=== PATIENT | male | born 1955 | race Caucasian/White ===

== ENCOUNTER 2019-11-08 07:52 | Outpatient (CLI) | payer BC, SELFPAY ==
--- NOTE | ~2019-11-08 | US_ITS ---
US right upper quadrant INDICATION: Chronic hepatitis C PROCEDURE: Realtime right upper abdominal ultrasound. COMPARISON: No prior studies for comparison. FINDINGS: The pancreas is normal without focal mass or pancreatic ductal dilation. Liver echotexture is normal without focal mass or intrahepatic biliary dilatation. There is normal directional flow i n the portal vein. The gallbladder is normal without stones, gallbladder wall thickening or pericholecystic fluid. Comm on bile duct measures 3.4 mm. No sonographic Sunshine's sign. IMPRESSION: 1: Normal limited abdominal ultrasound. Reviewed, dictated and finalized at location A.
== END 2019-11-08 07:53 | disposition home or self-care (01) ==
PROVIDERS: PCP Nurse Practitioner Family
DX: B18.2 Chronic viral hepatitis C (principal)
CPT/HCPCS: 76705

== ENCOUNTER 2020-06-21 17:59 | Emergency (ER) | payer BC, SELFPAY ==
--- NOTE | ~2020-06-21 | XR_ITS ---
EXAMINATION: XR finger 4th LT min 2V DATE: 06/21/2020 18:25 INDICATION: Left hand fourth digit injury. TECHNIQUE: 3 views of left hand fourth digit were obtained. COMPARISON: None. FINDINGS: There is a nondisplaced stellate fracture of tuft of fourth distal phalanx. 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 There is a 5 mm radiopaque foreign body bejarano r to fifth proximal phalanx. IMPRESSION: 1. Nondisplaced stellate fracture of tuft of fourth distal phalanx. 2. 5 mm radiopaque foreign body palmar to fifth proximal phalanx. Reviewed, dictated and finalized at location A.
[2020-06-21 18:02] VITALS: BP 194/105; PULSE 95; RESP 18; TEMP 36.4; O2SAT 97
[2020-06-21] MEDS: IBUPROFEN 600 MG TABLET PO (18:22)
--- NOTE | 2020-06-21 18:58 | ED.GENADULT ---
HPI - General Adult General Chief complaint: Extremity Injury, Upper Stated complaint: left hand injury Time Seen by Provider: 06/21/20 18:11 Source: patient and RN notes reviewed Mode of arrival: ambulatory Limitations: no limitations History of Present Illness HPI narrative: Patient is a 64-year-old male who presents with crush injury to the left ring finger patient had his finger get caught between his trailer and an object injuring the distal phalanx patient presents after the injury patient has not taken anything for his symptoms patient presents per private vehicle ice is applied patient has not had anything for pain denies other injuries or complaints Related Data Home Medications Medication Instructions Recorded Confirmed amlodipine 06/21/20 06/21/20 meloxicam 06/21/20 sofosbuvir-velpatasvir [Epclusa] tablet 06/21/20 Allergies Allergy/AdvReac Type Severity Reaction Status Date / Time No Known Allergies Allergy Verified 06/21/20 18:05 Review of Systems Review of Systems: All systems reviewed & are unremarkable except as noted in HPI and below PMFSH Social History Social History Gender identity (if verbalized by the patient): Male Exam Narrative: Exam Narrative: GENERAL: Well-appearing, well-nourished, and in no acute distress. HEAD: Normocephalic, atraumatic. EYES: PERRLA and EOMI. ENT: Nares clear, no rhinorrhea or epistaxis. Mucous membranes moist. EXTREMITIES: Patient with swelling and bruising and tenderness of the distal phalanx of the left ring finger SKIN: Warm, dry, no rash. NEURO: No focal deficits. Alert and oriented x3. Neurovascularly intact. Capillary refill less than 2-second PSYCH: Normal mood and affect. Course Course Emergency Course: Patient evaluated in the emergency department found to have fracture of the distal phalanx left ring finger placed in metal finger splint will be referred to hand surgeon for further evaluation Vital Signs Vital signs: Vital Signs Temperature 97.6 F 06/21/20 18:02 Pulse Rate 95 06/21/20 18:02 Respiratory Rate 18 06/21/20 18:02 Blood Pressure 194/105 H 06/21/20 18:02 Pulse Oximetry 97 06/21/20 18:02 Temperature 97.6 F 06/21/20 18:02 Pulse Rate 95 05/06/21 18:02 Respiratory Rate 18 06/21/20 18:02 Blood Pressure 194/105 H 06/21/20 18:02 Pulse Oximetry 97 06/21/20 18:02 Procedures Other Procedure Procedure 1: Other Procedure: Patient placed in metal finger splint Medical Decision Making MDM Narrative Medical decision making narrative: Patients injury or pain is consistent with musculoskeletal etiology. No signs of neurological or vascular compromise on exam. Compartments and tisues are soft without signs of compartment syndrome. Pain is felt appropriate for further evaluation on an outpatient basis. Vital Signs Vital Signs: Vital Signs Temperature 97.6 F 06/21/20 18:02 Pulse Rate 95 06/21/20 18:02 Respiratory Rate 18 06/21/20 18:02 Blood Pressure 194/105 H 06/21/20 18:02 Pulse Oximetry 97 06/21/20 18:02 Temperature 97.6 F 06/21/20 18:02 Pulse Rate 95 06/21/20 18:02 Respiratory Rate 18 06/21/20 18:02 Blood Pressure 194/105 H 06/21/20 18:02 Pulse Oximetry 97 06/21/20 18:02 Imaging Data Radiologist's impression: ITS Impressions Finger X-Ray 06/21/20 18:26 IMPRESSION: 1. Nondisplaced stellate fracture of tuft of fourth distal phalanx. 2. 5 mm radiopaque foreign body palmar to fifth proximal phalanx. Discharge Plan Discharge Clinical Impression: Finger fracture Patient Disposition: Home, Self-Care Condition: Stable Instructions: Antibiotic Form, Finger Fracture (ED) Additional Instructions: Follow-up with hand surgeon in the next day to set up for reevaluation Wear metal finger splint with rest ice and elevation Return if symptoms worsen or concerns Follow patient educat
--- NOTE | 2020-06-30 06:42 | PC.NURSE ---
Late Entry Metal finger splint applied to Left ring finger on 06/21/2020 at the time of discharge.
== END 2020-06-21 19:22 | disposition home or self-care (01) ==
PROVIDERS: Emergency Provider Family Medicine; PCP Nurse Practitioner Family
DX: S62.665A Nondisplaced fracture of distal phalanx of left ring finger, initial encounter for closed fracture (principal); W23.0XXA Caught, crushed, jammed, or pinched between moving objects, initial encounter
CPT/HCPCS: 29130; 73140; 99284; A9270

== ENCOUNTER 2024-07-03 13:27 | Inpatient (IN) | payer MEDICARE, BC, SELFPAY ==
--- NOTE | ~2024-07-03 | CT_ITS ---
EXAMINATION: CTA chest PE protocol DATE: 07/03/2024 14:42 CDT INDICATION: Shortness of breath with fever and leukocytosis TECHNIQUE: Computed tomographic angiography (CTA) of the chest was performed with 100 mL Omnipaque-35 0 intravenous contrast. The dose-length product was 640.45 mGy-cm. Maximum intensity projection 3D-re constructions of the aorta and other arteries were constructed by the technologist on a separate work station. COMPARISON: None. FINDINGS/OBSERVATIONS: PULMONARY ARTERIES: No filling defect is identified within the main or proximal pulmonary artery. The main pulmonary artery is not enlarged. THORACIC AORTA: No aneurysmal dilatation or dissection is present. The great vessels are intact LUNGS: Calcified granuloma within the right upper lobe. Nodular density without air bronchograms measuring 4.9 x 3.4 x 3.6 cm is present within the left lowe r lobe. Surrounding interstitial thickening is noted. The remainder of the lungs are clear. MEDIASTINUM: No morphologically suspicious or pathologically enlarged lymph nodes are identified with in the mediastinum or bilateral axilla. BONES OF THE CHEST: No acute fracture. No significant degenerative disease. No lytic or blastic lesions. HEART: The heart is of normal size, without pericardial effusion. IMPRESSION: No central pulmonary embolus. No thoracic aortic dissection. Findings within the left lower lobe for which an infiltrate is suspected. Follow-up to resolution is recommended, as a malignancy has a similar appearance. Reviewed, dictated and finalized at location A. IMPRESSION: No central pulmonary embolus. No thoracic aortic dissection. Findings within the left lower lobe for which an infiltrate is suspected. Follow-up to resolution is recommended, as a malignancy has a similar appearanc e.
[2024-07-03 13:29] VITALS: BP 139/93; PULSE 116; RESP 20; TEMP 39.2; O2SAT 100
--- OUTSIDE RECORDS SUMMARY | 2024-07-03 13:30 | XMS_ITS | Clinical Summary ---
Author Organization [facility] Address [address] [place] [address] Care Team Providers [employer] Supervisor Name Role Phone Unavailable Primary Care Provider Unavailabl e Immunizations Immunization Administration Dates Next Due Covid-19, Mrna, Lnp-s, Pf, 30 Mcg/0.3 Ml Dose (P kevinzer) 12/25/2020,11/27/2020 Social History Tobacco Use Types Packs/Day Years Used Date Smoking Tobacco: Never Assessed Sex and Gender Information Value Date Recorded Sex Assigned at Not on file Legal Sex Male 6:03 PM CDT Gender Identity Not on file Sexual Orientation Not on file Plan of Treatment Health Maintenance Due Date Last Done Comments Hepatitis C Virus (HCV) Screening 1955 Colonoscopy 2001 Colorectal Cancer Screening 2001 Cologuard 2006 Immunochemical Fecal Occult Blood 2006 Pneumococcal Immunization (5 0+ years) (1 of 1 - PCV) 2006 Zoster Immunization (1 of 2) 2006 Influenza Immunization (#1) 2023 SARS-COV-2 Immunization ( season) 2023 12/25/2020, 11/27/2020 Respiratory Syncytial Virus (RSV) Immunization (Adult) (1 - 1-dose 75+ series) 12/13/2031 DTaP/Tdap/Td Immunization Discontinued 08/22/2019 TdaP Immunization Completed 08/22/2019 Hepatitis B Immunization Aged Out No longer eligible based on patient's age to complete this topic Meningococcal Immunization (ACWY) Aged Out No longer eligible based on patient's age to complete this topic Rotavirus Immunization Aged Out No lo nger eligible based on patient's age to complete this topic
--- OUTSIDE RECORDS SUMMARY | 2024-07-03 13:30 | XMS_ITS | Clinical Summary ---
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 90 tablet 3 4 Active budesonide-glycopyr rolate-formoterol (BREZTRI) 160-9-4.8 MCG/ACT inhalerIndications: SOB (shortness of breath) Inhale 2 puffs into the lungs 2 (two) times daily. 32.1 g 3 5 Active Albuterol-Budesonid e (AIRSUPRA) 90-80 MCG/ACT AerosolIndications: SOB (shortness of breath) Inhale 2 puffs into the lungs every 6 (six) hours as needed (sob). 32.1 g 3 5 Active tamsulosin (FLOMAX) 0.4 MG CapIndications:Chepe gn prostatic hyperplasia with urinary hesitancy Take 1 capsule (0.4 mg total) by mouth daily. 90 capsule 1 5 Active meloxicam (MOBIC) 15 MG tabletIndications:P rimary osteoarthritis involving multiple joints Take 1 tablet (15 mg total) by mouth daily. 90 tablet 1 5 Active losartan (COZAAR) 100 MG tabletIndications:P rimary hypertension Take 1 tablet (100 mg total) by mouth daily. 90 tablet 3 5 Active buPROPion XL (WELLBUTRIN XL) 300 MG 24 hr tabletIndications:M ild episode of recurrent major depressive disorder Take 1 tablet (300 mg total) by mouth daily. 90 tablet 3 5 Active amLODIPine (NORVASC) 10 MG tabletIndications:P rimary hypertension Take 1 tablet (10 mg total) by mouth daily. 90 tablet 3 5 Active Active Problems Problem Noted Date Diagnosed Date Primary osteoarthritis involving multiple joints 04/18/2024 Nicotine dependence, cigarettes, in remission Family history of early CAD 02/13/2022 Anxiety 02/13/2022 Non-compliance with treatment 10/26/2020 Anger 03/27/2020 Benign prostatic hyperplasia with urinary hesita ncy 03/27/2020 History of intravenous drug abuse 11/24/2019 Mixed hyperlipidemia 08/24/2019 Neuropathy 08/24/2019 History of positive hepatitis C 03/02/2019 Class 1 obesity due to exces s calories with serious comorbidity and body mass index (BMI) of 30.0 to 30.9 in adult 03/02/2019 Influenza vaccination declined by patient 2019 Tetanus, diphtheria, and james llular pertussis (Tdap) vaccination declined 03/02/2019 Encounter for smoking cessation counseling 02/22 SOB (shortness of breath) 02/22/2019 Chronic hepatitis C (CMS/HCC [facility]/HCC) 02/04/2019 Abdominal pain 12/21/2016 Shoulder pain, right 12/11/2016 Depression 06/12/2016 Erectile dysfunction 06/12/2016 Elevated liver enzymes 03/26/2016 Low vitamin D level 03/26/2016 Primary hypertension 03/20/2016 Resolved Problems Problem Noted Date Diagnosed Date Resolved Date Resistant hypertension 02/13/202204/18 Pain and swelling of left lower leg 10/26/2020 04/18/2024 Screening for prostate cancer 08/24/2019 10/28/2019 Encounter to establish care 03/02/2019 10/28/2019 Smoker 02/22/2019 08/24/2019 Abdominal bloating 12/11/2016 5 Conjunctivitis 12/11/2016 04/18/2024 Immunization due 03/20/2016 10/28/2019 Encounters Date Type Department Care Team Description 06/14/[address] [address] Vicki Norman FNP Results 06/08/[address] [address] Vicki Norman FNP Lab Results 06/02/2024 Results Follow-Up [address] [address] Vicki Norman FNP HEMOGLOBIN, GLYCOSYLATED, MAGNESIUM, FOLIC ACID SERUM, Additional followed-up results: 9 06/01/2024 10:20 AM CDT Laboratory Only [address] [address] Vicki Norman FNP 06/01/2024 Scan [employer] INFO SRVCS Scanned, [facility] Ultrasound (SCAN) 06/01/2024 Travel 04/18/2024 2:[address] PRODUCTION GENERAL MANAGER Office Visit [address] [address] Vicki Norman FNP Annual 04/18/2024 Travel from Last 3 Months Immunizations Immunization Administration Dates Next Due Tdap (Adacel) 08/22/2019 Family History Medical History Relation Comments Hypertension Maternal Grandfather Hypertension Maternal Grandmother Heart Disease Mother Hypertension Mother Relation Status Comments Father Maternal Grandfather Maternal Grandmother Mother Alive Social History Tobacco Use Types Packs/Day Years Used Date Smoking Tobacco: Former Cigarettes 0.5 45 1 - 12/01/2018 Smokeless Tobacco: Never Tobacco Cessation:Counseling Given: Yes Alcohol Use Standard Drinks/Week Comments Not Currently 1.7 (1 standard drin k = 0.6 oz pure alcohol) socially; 2-4 beers a month AUDIT-C Answer Date Recorded Frequency of Alcohol Consumption Never 02/22/2019 Average Number of Drinks Not on file 020 Frequency of Binge Drinking Not on file 08/2019 PHQ-2 Answer Date Recorded Patient Health Questionnaire-2 Score 1 04/18/2024 Sex and Gender Information Value Date Recorded Sex Assigned at Male 04/18/2024 2:[address] PRODUCTION GENERAL MANAGER Legal Sex Male 7:48 PM CDT Gender Identity Male 04/18/2024 2:[address] PRODUCTION GENERAL MANAGER Sexual Orientation Not on file Last Filed Vital Signs Vital Sign Reading Time Taken Comments Blood Pressure 128/76 04/18/2024 3:[address] PRODUCTION GENERAL MANAGER man ual Pulse 101 04/18/2024 2:[address] PRODUCTION GENERAL MANAGER Temperature 37 C (98.6 F) 04/18/2024 2:[address] PRODUCTION GENERAL MANAGER Respiratory Rate 16 04/18/2024 2:[address] PRODUCTION GENERAL MANAGER Oxygen Saturation 98% 04/18/2024 2:[address] PRODUCTION GENERAL MANAGER Inhaled Oxygen Concentration - - Weight 99.1 kg (218 lb 8 oz) 04/18/2024 2:[address] PRODUCTION GENERAL MANAGER Height 180.3 cm (5' 11 ) 04/18/2024 2:[address] PRODUCTION GENERAL MANAGER Body Mass Index 30.47 04/18/2024 2:[address] PRODUCTION GENERAL MANAGER Plan of Treatment Health Maintenance Due Date Last Done Comments Lung Cancer Screening 03/15/2020 03/15/2019 Colorectal Cancer Screening FIT-DNA (3 Years) 02/27/2025 02/27/2022, 02/27/2022, 12/15/2018 DTaP, Tdap and Td Vaccines (2 - Td or Tdap) 08/21/2029 08/22/2019 COVID-19 Vaccine (3 - season) 2074 12/25/2020, 11/27/2020 Postponed from 10/18/2023 (Patient Refused) Pneumococcal Vaccine: 50+ Years (1 of 2 - PCV) 04/18/2074 Postponed from 12/13/1975 (Patient Refused) RSV Immunization or 60+ Years (1 - Risk 60-74 years 1-dose series) 04/18/2074 Postponed fro m 2016 (Patient Refused) Zoster Vaccines (1 of 2) 04/18/2074 Pos tponed from 2006 (Patient Refused) Hepatitis C Completed 03/07/2022, 10/17, 03/27/2020, Additional history exists PHQ-2 (Physician [place]) Completed 04/18/2024 AAA SCREENING Completed 06/01/2024 Meningococcal B Vaccine Aged Out No l onger eligible based on patient's age to complete this topic Meningococcal Vaccine Aged Out No uli mario eligible based on patient's age to complete this topic RSV Immunizations Under 20 Months Aged Out No longer eligible based on patient's age to complete this topic Procedures Procedure Name Priority Date/Time Associated Diagnosis Comments COLLECTION VENOUS BLOOD VENIPUNCTURE Routine 06/01/2024 11:02 AM CDT Class 1 obesity due to excess calories with serious comorbidity and body mass index (BMI) of 30.0 to 30.9 in adult Mixed hyperlipidemia Primary hypertension Mild episode of recurrent major depressive disorder Low vitamin D level Encounter for prostate cancer screening CBC W/DIFF AUTOMATED Routine 06/01/2024 11:02 AM CDT Mixed hyperlipidemia Primary hypertension LIPID PANEL Routine 06/01/2024 11:02 AM CDT Mixed hyperlipidemia Primary hypertension TSH W/REFLEX Routine 06/01/2024 11:02 AM CDT Mixed hyperlipidemia Primary hypertension PROSTATE SPECIFIC ANTIGEN,SCREENING Routine 06/01/2024 11:02 AM CDT Encounter for prostate cancer screening VITAMIN D, 25 OH Routine 06/01/2024 11:0 2 AM CDT Low vitamin D level URIC ACID BLOOD Routine 06/01/2024 11:02 AM CDT Mixed hyperlipidemia Primary hypertension COMPREHENSIVE METABOLIC PANEL Routine 06/01/2024 11:02 AM CDT Mixed hyperlipidemia Primary hypertension URINALYSIS, AUTO, COMPLETE Routine 06/01/2024 11:02 AM CDT Mixed hyperlipidemia Primary hypertension VITAMIN B-12 Routine 06/01/2024 11:02 AM CDT Mild episode of recurrent major depressive disorder FOLIC ACID SERUM Routine 06/01/2024 11:0 2 AM CDT Mild episode of recurrent major depressive disorder MAGNESIUM Routine 06/01/2024 11:02 AM CDT Mild episode of recurrent major depressive disorder HEMOGLOBIN, GLYCOSYLATED Routine 06/01/2024 11:02 AM CDT Class 1 obesity due to excess calories with serious comorbidity and body mass index (BMI) of 30.0 to 30.9 in adult Mixed hyperlipidemia Primary hypertension US AORTA (AAA) SCREEN - GENERIC 06/01/2024 COLOGUARD (EXACT SCIENCE) Routine 02/27/2022 11:[address] PRODUCTION GENERAL MANAGER Screening for colon cancer CT LUNG SCREENING Routine 03/15/2019 Smoker from Last 3 Months or Most Recently Relevant to Health Maintenance Results * TSH W/REFLEX (06/01/2024 11:02 AM CDT) Pathologist [facility] TSH 0.943 0.358 - 3.740 uIU/ML 06/01/2024 4:13 PM CDT [facility] 06/01/2024 11:0 2 AM CDT Vicki Norman [facility] Final Result Performing Organization Address City/[facility] Co de Phone Number [facility] [address] [place] [address], * (ABNORMAL) HEMOGLOBIN, GLYCOSYLATED (06/01/2024 11:02 AM CDT) Pathologist [facility] HGB A1C 6.0 4.5 - 6.2 % 06/01/2024 4:22 PM CDT [facility] ESTIMATED AVG GLUCOSE 126(H) 74 - 106 MG/DL 06/01/2024 4:22 PM CDT [facility] 06/01/2024 11:0 2 AM CDT Vicki Norman [facility] Final Result Performing Organization Address City/[facility]/ZIP Co de Phone Number [facility] [address] [place] [address], [place] [phone] * (ABNORMAL) URINALYSIS (06/01/2024 11:02 AM CDT) COLOR (U) YELLOW 06/01/2024 4:04 PM CDT [facility] TRANSPARENCY CLEAR CLEAR 06/01/2024 4:04 PM CDT [facility] SPECIFIC GRAVITY (U) 1.025 1.003 - 1.040 06/01/2024 4:04 PM CDT [facility] U PH 6.5 5.0 - 9.0 06/01/2024 4:04 PM T [facility] PROTEIN RANDOM (U) 1+(A) NEGATIVE 06/01/2024 4:04 PM T [facility] GLUCOSE (U) NEGATIVE NEGATIVE 06/01/2024 4:04 PM T [facility] KETONES MG/DL (U) NEGATIVE NEGATIVE 06/01/2024 4:04 PM T [facility] BILIRUBIN (U) NEGATIVE NEGATIVE 06/01/2024 4:04 PM T [facility] BLOOD (U) NEGATIVE NEGATIVE 06/01/2024 4:04 PM T [facility] UROBILINOGEN 2.0 0.0 - 2.0 EU/DL 06/01/2024 4:04 PM T [facility] NITRITES NEGATIVE NEGATIVE 06/01/2024 4:04 PM T [facility] LEUKOCYTES (U) NEGATIVE NEGATIVE 06/01/2024 4:04 PM CDT [facility] RBC/HPF 0-3 0 - 3 /HPF 06/01/2024 4:04 PM CDT [facility] WBC/HPF 0-3 0 - 3 /HPF 06/01/2024 4:04 PM CDT [facility] EPI/HPF 0-3 /HPF 06/01/2024 4:04 PM CDT [facility] BACTERIA (U) TRACE(A) NONE SEEN 06/01/2024 4:04 PM CDT [facility] MUCUS FEW 06/01/2024 4:04 PM CDT [facility] URINE SPECIMEN OBTAINED BY CLEAN CATCH PROCEDURE / Unknown 06/01/2024 11:02 AM CDT Vicki Emerson [facility] URINE ORDERABLES Final Result Performing Organization Address [facility]/ZIP Co de Phone Number [facility] [address] [place] [address], [place] [phone] * VITAMIN B-12 (06/01/2024 11:02 AM CDT) VITAMIN B12 S/P/B 664 193 - 986 PG/ML 06/01/2024 4:13 PM CDT [facility] 06/01/2024 11:0 2 AM CDT us Vicki Norman [facility] Final Result Performing Organization Address [facility] Co de Phone Number [facility] [address] [place] [address], [place] [phone] * (ABNORMAL) PROSTATE SPECIFIC ANTIGEN,SCREENING (06/01/2024 11:02 AM CDT) PSA 4.41(H) <4.00 NG/ML 06/01/2024 3:26 PM CDT [facility] Comment: ASSAY PERFORMED BY [employer]OLOG[employer] USING [employer] REAGENT. PATIENT RESULTS DETERMINED BY ASSAYS FROM DIFFERENT MANUFACTURERS AND/OR BY DIFFERENT METHODS MAY NOT BE COMPARABLE. 06/01/2024 11:0 2 AM CDT us Vicki Norman [facility] Final Result -[facility]ITAL[facility] MURRIET[facility] [address] [place] [address], * (ABNORMAL) COMPREHENSIVE METABOLIC PANEL (06/01/2024 11:02 AM CDT) [facility] SODIUM S/P/B 142 136 - 145 MMOL/L 06/01/2024 4:13 PM CDT -[facility] POTASSIUM S/P/B 3.8 3.5 - 5.1 MMOL/L 06/01/2024 4:13 PM CDT -[facility] CHLORIDE S/P/B 106 98 - 107 MMOL/L 06/01/2024 4:13 PM CDT -[facility] CO2 29.3 21 - 32 MMOL/L 06/01/2024 4:13 PM CDT -[facility] GLUCOSE 114(H) 70 - 99 MG/DL 06/01/2024 4:13 PM CDT -[facility] BUN 15 7 - 18 MG/DL 06/01/2024 4:13 PM CDT -[facility] CREATININE S/P/B 1.22 0.70 - 1.30 MG/DL 06/01/2024 4:13 PM CDT -[facility] CALCIUM S/P/B 9.0 8.4 - 10.5 MG/DL 06/01/2024 4:13 PM CDT -[facility] BILIRUBIN TOTAL S/P/B 0.4 0.2 - 1.0 MG/DL 06/01/2024 4:13 PM CDT -[facility] ALKALINE PHOSPHATASE S/P/B 85 45 - 115 U/L 06/01/2024 4:13 PM CDT -[facility] AST 21 15 - 37 U/L 06/01/2024 4:13 PM CDT -[facility] ALT 32 16 - 63 U/L 06/01/2024 4:13 PM CDT [facility] TOTAL PROTEIN S/P/B 7.0 6.4 - 8.2 G/DL 06/01/2024 4:13 PM CDT [facility] ALBUMIN S/P/B 3.6 3.4 - 5.0 G/DL 06/01/2024 4:13 PM CDT [facility] ANION GAP 6.7 5 - 15 MMOL/L 06/01/2024 4:13 PM CDT [facility] Comment:REFERENCE RANGE NOT ESTABLISHED OSMOLALITY (CALC) 296 MOSM/KG 025 4:13 PM CDT [facility] Comment:REFERENCE RANGE NOT ESTABLISHED GFR ESTIMATE 65(L) >90 ML/MIN/1. 73 M2 06/01/2024 4:13 PM CDT [facility] GFR NOTES GFR REFERENCE S: 06/01/2024 4:13 PM T [facility] Comment: THE ESTIMATED GFR IS CALCULATED USING THE 2020 CKD-EPI EQUATION. THE FOLLOWING CATEGORIES FOR GRADING RENAL FUNCTION ARE RECOMMENDED BY THE INTERNATIONAL SOCIETY OF NEPHROLOGY (KDIGO 2012 CLINICAL PRACTICE GUIDELINE). G1,NORMAL OR HIGH: >89 ml/min/1.73 m2 G2,MILDLY DECREASED: 60-89 ml/min/1.73 m2 G3A,MILDLY TO MODERATELY DECREASED: 45-59 ml/min/1.73 m2 G3B,MODERATELY TO SEVERELY DECREASED: 30-44 ml/min/1.73 m2 G4,SEVERELY DECREASED: 15-29 ml/min/1.73 m2 G5,KIDNEY FAILURE: <15 ml/min/1.73 m2 06/01/2024 11:0 2 AM CDT us Vicki [facility] Final Result [facility] [address] [place] [address], * LIPID PANEL (06/01/2024 11:02 AM CDT) CHOLESTEROL 121 <200 MG/DL 06/01/2024 4:13 PM CDT [facility] TRIGLYCERIDES 104 <150 MG/DL 06/01/2024 4:13 PM CDT [facility] HDL 48 >40 MG/DL 06/01/2024 4:13 PM CDT [facility] LDL-C 52 <100 MG/DL 06/01/2024 4:13 PM CDT [facility] VLDL CALCULATION 21 5 - 28 MG/DL 06/01/2024 4:13 PM CDT [facility] CHOL/HDL RATIO 2.5 0.0 - 4.0 06/01/2024 4:13 PM CDT [facility] LDL/HDL 1.1 0.41 - 2.13 06/01/2024 4:13 PM CDT [facility] NON HDL CHOLESTEROL 73 <140 MG/DL 06/01/2024 4:13 PM CDT [facility] 06/01/2024 11:0 2 AM CDT Vicki ALLISONP [facility] Final Result Performing Organization Address City/[facility]/ZIP Co de Phone Number [facility] [address] [place] [address], * FOLIC ACID SERUM (06/01/2024 11:02 AM CDT) FOLATE 9.9 8.6 - 58.9 NG/ML 06/01/2024 3:28 PM CDT [facility] 06/01/2024 11:0 2 AM CDT Vicki Norman [facility] Final Result [facility] [address] [place] [address], * (ABNORMAL) CBC W/DIFF AUTOMATED (06/01/2024 11:02 AM CDT) [facility] WBC 6.77 4.00 - 10.80 x10'3/uL 06/01/2024 2:48 PM CDT [facility] RBC 4.95 4.50 - 6.10 x10'6/uL 06/01/2024 2:48 PM CDT MG-[facility] HGB 13.7 13.0 - 18.0 G/DL 06/01/2024 2:48 PM CDT [facility] HCT 42.5 37.0 - 52.0 % 06/01/2024 2:48 PM CDT [facility] MCV 85.9 78.0 - 100.0 FL 06/01/2024 2:48 PM CDT [facility] MCH 27.7 27.0 - 31.0 PG 06/01/2024 2:48 PM CDT [facility] MCHC 32.2(L) 33.0 - 36.0 G/DL 06/01/2024 2:48 PM CDT [facility] RDW 13.7 11.5 - 14.5 % 06/01/2024 2:48 PM CDT [facility] PLT 277 150 - 350 x10'3/uL 06/01/2024 2:48 PM CDT [facility] MPV 9.8 7.4 - 10.4 FL 06/01/2024 2:48 PM CDT [facility] DIFFERENTIAL TYPE AUTOMATED DIFFERENTIAL 06/01/2024 2:48 PM CDT [facility] NEUTROPHILS % 57.6 % 06/01/2024 2:48 PM CDT [facility] LYMPHOCYTES % 30.0 % 06/01/2024 2:48 PM CDT [facility] MONOCYTES % 6.8 % 06/01/2024 2:48 PM CDT -[facility] EOSINOPHILS % 4.6 % 06/01/2024 2:48 PM CDT [facility] BASOPHILS % 0.4 % 06/01/2024 2:48 PM CDT [facility] IMMATURE GRANS % 0.6 % 06/01/2024 2:48 PM CDT -[facility] ABS. NEUTROPHILS 3.90 1.60 - 8.30 x10'3/uL 06/01/2024 2:48 PM CDT -[facility] ABS. LYMPHOCYTES 2.03 0.80 - 4.70 x10'3/uL 06/01/2024 2:48 PM CDT [facility] ABS. MONOCYTES 0.46 0.00 - 1.50 x10'3/uL 06/01/2024 2:48 PM CDT [facility] ABS. EOSINOPHILS 0.31 0.00 - 0.40 x10'3/uL 06/01/2024 2:48 PM CDT [facility] ABS. BASOPHILS 0.03 0.00 - 0.20 x10'3/uL 06/01/2024 2:48 PM CDT [facility] ABS. IMMATURE GRANULOCYTES 0.04(H) 0.00 - 0.03 x10'3/uL 06/01/2024 2:48 PM CDT [facility] 06/01/2024 11:0 2 AM CDT us Vicki Norman [facility] Final Result -[facility] [address] [place] [address], * VITAMIN D, 25 OH (06/01/2024 11:02 AM CDT) VITAMIN D 25 HYDROXY TOTAL S/P/B 65.0 30 - 100 NG/ML 06/01/2024 4:13 PM CDT [facility] Comment: DEFICIENT <20 INSUFFICIENT 20-30 SUFFICIENT 30-100 06/01/2024 11:0 2 AM CDT Vicki Norman [facility] [facility] Final Result Performing Organization Address City/[facility]/ZIP Co de Phone Number [address] [address], * MAGNESIUM (06/01/2024 11:02 AM CDT) MAGNESIUM 2.0 1.8 - 2.4 MG/DL 06/01/2024 4:13 PM CDT [facility] 06/01/2024 11:0 2 AM CDT Vicki Norman [facility] Final Result Performing Organization Address [facility] Co de Phone Number [address] [address], * (ABNORMAL) URIC ACID BLOOD (06/01/2024 11:02 AM CDT) URIC ACID 7.4(H) 3.5 - 7.2 MG/DL 06/01/2024 3:28 PM CDT [facility] 06/01/2024 11:0 2 AM CDT us Vicki Norman [facility] Final Result Performing Organization Address City/[facility] Co de Phone Number [address] [address], [place] [phone] * US AORTA (AAA) SCREEN - GENERIC (06/01/2024) Anatomical Region Laterality Modality Other 06/01/2024 us [facility] Scanned SCANNING Final Resu lt * COLOGUARD (EXACT SCIENCE) (02/27/2022 11:[address] PRODUCTION GENERAL MANAGER) COLOGUARD RESULT Negative Negative [employer] (CLIA #:[id number]) Comment: NEGATIVE TEST RESULT. A negative Cologuard result indicates a low likelihood that a colorectal cancer (CRC) or advanced adenoma (adenomatous polyps with more advanced pre-malignant features) is present. The chance that a person with a negative Cologuard test has a colorectal cancer is less than 1 in 1500 (negative predictive value >99.9%) or has an advanced adenoma is less than 5.3% (negative predictive value 94.7%). These data are based on a prospective cross-sectional study of 10,000 individuals at average risk for colorectal cancer who were screened with both Cologuard and colonoscopy. (Richar Kidd et al, N Engl J Med 2014;370(14):1097-7271) The normal value (reference range) for this assay is negative. COLOGUARD RE-SCREENING RECOMMENDATION: Periodic colorectal cancer screening is an important part of preventive healthcare for asymptomatic individuals at average risk for colorectal cancer. Following a negative Cologuard result, the [place] [employer] and U.S. Multi-Society Task Force screening guidelines recommend a Cologuard re-screening interval of 3 years. References: [place] [employer] Guideline for Colorectal Cancer Screening: https://www.cancer.org/cancer/kppkv-hhcdyc-qswwvi/fcxmjrskt-jntcszpwe-giszudb/ac s-rec ommendations.html.; Brandon SWAIN, Frances CR, Eric BlackburnK, Colorectal Cancer Screening: Recommendations for Physicians and Patients from the U.S. Multi-Society Task Force on Colorectal Cancer Screening , Am J Gastroenterology 2017; 112:4092-6918. TEST DESCRIPTION: Composite algorithmic analysis of stool DNA-biomarkers with hemoglobin immunoassay. Quantitative values of individual biomarkers are not reportable and are not associated with individual biomarker result reference ranges. Cologuard is intended for colorectal cancer screening of adults of either sex, 45 years or older, who are at average-risk for colorectal cancer (CRC). Cologuard has been approved for use by the U.S. FDA. The performance of Cologuard was established in a cross sectional study of average-risk adults aged 50-84. Cologuard performance in patients ages 45 to 49 years was estimated by sub-group analysis of near-age groups. Colonoscopies performed for a positive result may find as the most clinically significant lesion: colorectal cancer [4.0%], advanced adenoma (including sessile serrated polyps greater than or equal to 1cm diameter) [20%] or non- advanced adenoma [31%]; or no colorectal neoplasia [45%]. These estimates are derived from a prospective cross-sectional screening study of 10,000 individuals at average risk for colorectal cancer who were screened with both Cologuard and colonoscopy. (Richar Barajas al, N Engl J Med 2014;370(14):5782-7701.) Cologuard may produce a false negative or false positive result (no colorectal cancer or precancerous polyp present at colonoscopy follow up). A negative Cologuard test result does not guarantee the absence of CRC or advanced adenoma (pre-cancer). The current Cologuard screening interval is every 3 years. ([employer] [employer] and [place] Multi-Society Task Force). Cologuard performance data in a 10,000 patient pivotal study using colonoscopy as the reference method can be accessed at the following location: www.SpotOnWay/results. Additional description of the Cologuard test process, warnings and precautions can be found at [email or web address]. STOOL STOOL SPECIMEN / Unknown 02/27/2022 11:[address] PRODUCTION GENERAL MANAGER 03/01/2022 9:[address] PRODUCTION GENERAL MANAGER us Vicki Norman BURIAL VAULT SETTER BODY FLUIDS AND STOOLS ORDERAB LES Final Result [facility] [employer] [address] [place] [address], [facility] (CLIA #:[id number]) [address] [place] [address] * CT LUNG SCREENING (03/15/2019) Anatomical Region Laterality Modality Chest Computed Tomogra phy Vicki VILLATORO CT Edited Result - Final from Last 3 Months or Most Recently Relevant to Health Maintenance Insurance Care Teams Mixing Plant Operator Relationship Specialty Start Date End Date Vicki Norman FNP [address] [place] [id number] PCP - General Nurse Practitioner Family 02/12/18
--- OUTSIDE RECORDS SUMMARY | 2024-07-03 13:30 | XMS_ITS | Referral Summary ---
Author Organization [facility] [place] [facility] Address [address] [place] [address] Care Team Providers Care Punchboard Assembler Name Role Phone Vicki Norman NP Primary Care Provider Encounters Date Type Department Care Team Description 06/01/2024 7:20 AM CDT - 06/01/2024 11:59 PM CDT Hospital Encounter [facility] US [address] [place] [address] Screening for AAA (aortic abdominal aneurysm) Discharge Disposition: Discharge to home or self care from Last 3 Months Allergies No known active allergies Medications erythromycin (ILOTYCIN) ophthalmic ointment Place a 1/2 inch ribbon of ointment into the lower eyelid four times per day for 5 days. 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 Gender Identity Not on file Sexual Orientation Not on file Last Filed Vital Signs Vital Sign Reading Time Taken Comments Blood Pressure 172/115 10/23/2020 1:06 PM CDT MARK CRAFT INFORMED Pulse 75 10/23/2020 12:26 PM CDT Temperature 36.6 C (97.9 F) 10/23/2020 10:08 AM CDT Respiratory Rate 16 10/23/2020 12:2 6 PM CDT Oxygen Saturation 98% 10/23/2020 12: 26 PM CDT Inhaled Oxygen Concentration - - Weight 101.3 kg (223 lb 5.2 oz) 10/23/2020 10:08 AM CDT Height 180.3 cm (5' 11 ) 10/23/2020 10: 08 AM CDT Body Mass Index 31.15 10/23/2020 10:08 AM CDT Plan of Treatment Not on file Procedures Procedure Name Priority Date/Time Associated Diagnosis Comments US ABDOMINAL AORTIC ANEURYSM SCREENING Schedule Routine, Read Routine (OP Routine) 06/01/2024 7:51 AM CDT Screening for AAA (aortic abdominal aneurysm) PSA SCREEN Routine 10/26/2020 9:24 AM CDT from Last 3 Months or Most Recently Relevant to Health Maintenance Results * US Abdominal Aortic Aneurysm Screening (06/01/2024 7:51 AM CDT) Anatomical Region Laterality Modality Abdomen Ultrasound 06/04/2024 10:3 5 AM CDT Narrative 06/04/2024 10:36 AM CDT EXAM DESCRIPTION: US ABDOMINAL AORTIC ANEURYSM SCREENING REASON FOR STUDY: Screening TECHNIQUE: Grayscale images acquired of the aorta and stored on PACS. Selected color Doppler and spectral images recorded. COMPARISON: None FINDINGS: AORTIC CALIBER MAXIMAL PROXIMAL: 2.8 x 2.8 cm. MID: 2.2 x 2.2 cm. DISTAL: 1.9 x 1.9 cm. ILIAC DIAMETER RIGHT: 1.1 x 1.1 cm. LEFT: 1.2 x 1.2 cm. OTHER: No other significant finding. IMPRESSION: 1. Abdominal aortic ectasia measuring 2.8 cm. Recommend follow-up ultrasound in 5 years. REFERENCE: Please see below follow up recommendations for abdominal aortic aneurysm surveillance per Society for Vascular Surgery Guidelines: < 2.6 cm No follow up or future screenings necessary 2.62.9 cm Recommended ultrasound follow up every 5 years 3.0-3.4 cm Recommended ultrasound follow up every 3 years 3.5-3.9 cm Recommended ultrasound follow up every 12 months 4.0-4.9 cm Recommended ultrasound follow up every 12 months, vascular surgery consult 5.0-5.4 cm Recommended ultrasound follow up every 6 months, vascular surgery consult >= 5.5 cm Referral to vascular surgeon Based upon Society for Vascular Surgery Guidelines: J Vasc Surgery 2009 Oct 50: s2-s49; updated Feb 2017 J Vasc Surgery 67:2-77 THIS IS AN ELECTRONICALLY VERIFIED FINAL REPORT 06/04/2024 10:36 AM - Electronically signed by Abdullahi Owen M.D. AG T: Report ID: [id number] Reading Location: [id number] Procedure Note Abdullahi Owen MD - 06/04/2024 EXAM DESCRIPTION: US ABDOMINAL AORTIC ANEURYSM SCREENING REASON FOR STUDY: Screening TECHNIQUE: Grayscale images acquired of the aorta and stored on PACS.Selected color Doppler and spectral images recorded. COMPARISON: None FINDINGS: AORTIC CALIBER MAXIMAL PROXIMAL: 2.8 x 2.8 cm. MID: 2.2 x 2.2 cm. DISTAL: 1.9 x 1.9 cm. ILIAC DIAMETER RIGHT: 1.1 x 1.1 cm. LEFT: 1.2 x 1.2 cm. OTHER: No other significant finding. IMPRESSION: 1. Abdominal aortic ectasia measuring 2.8 cm. Recommend follow-up ultrasound in 5 years. REFERENCE: Please see below follow up recommendations for abdominal aortic aneurysm surveillance per Society for Vascular Surgery Guidelines: < 2.6 cm No follow up or future screenings necessary 2.62.9 cm Recommended ultrasound follow up every 5 years 3.0-3.4 cm Recommended ultrasound follow up every 3 years 3.5-3.9 cm Recommended ultrasound follow up every 12 months 4.0-4.9 cm Recommended ultrasound follow up every 12 months, vascularsurgery consult 5.0-5.4 cm Recommended ultrasound follow up every 6 months, vascularsurgery consult >= 5.5 cm Referral to vascular surgeon Based upon Society for Vascular Surgery Guidelines: J Vasc Surgery 2009Oct 50: s2-s49; updated Feb 2017 J Vasc Surgery 67:2-77 THIS IS AN ELECTRONICALLY VERIFIED FINAL REPORT 06/04/2024 10:36 AM - Electronically signed by Abdullahi Owen M.D. AG T: Report ID: [id number] Reading Location: [id number] us Vicki Norman NP IMG US PROCEDURES Final Resu lt * PSA screen (10/26/2020 9:24 AM CDT) PSA-Total 3.00 <=5.40 ng/mL [facility] VILLELA Comment: Interpretive Data AGE SEX REFERENCE INTERVAL 0 minutes-150 years Female None 0 minutes-49 years Male None 50-59 years Male 0-3.90 60-69 years Male 0-5.40 70-79 years Male 0-6.20 80-150 years Male 0-6.20 Current interpretive data last revised 2017. Testing performed by: [facility], [address] [place] [address]., [id number] Blood 10/26/2020 9:24 AM CDT 10/26/2020 9:42 AM CDT us Vicki Norman NP LAB BLOOD ORDERABLES Final R esult LUZ MARIA [address] [facility] Department [place] [address] from Last 3 Months or Most Recently Relevant to Health Maintenance [place] BL[place] ACCESS OOS WORKERS COMPENSATION GENERIC Care Teams Punchboard Assembler Relationship Specialty Start Date End Date Vicki Norman NP [address] [place] [phone] PCP - General 03/02/19
--- OUTSIDE RECORDS SUMMARY | 2024-07-03 13:30 | XMS_ITS | Clinical Summary ---
Author Organization [facility] [place] [facility] Address [address] [place] [address] Care Team Providers Care Pmo Consultant Name Role Phone Vicki Norman NP Primary Care Provider [phone] Allergies No known active allergies Medications erythromycin (ILOTYCIN) ophthalmic ointment Place a 1/2 inch ribbon of ointment into the lower eyelid four times per day for 5 days. 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 Gender Identity Not on file Sexual Orientation [...] 10/23/2020 10:08 AM CDT Plan of Treatment Health Maintenance Due Date Last Done Comments Colon Cancer Screening-Colonoscopy 1955 Depression Screening 1955 Fall Risk Assessment 1955 Hepatitis C Screening 1956 Hepatitis B Screening 1974 Pneumococcal vaccine 65+ (1 of 1 - PCV) 2006 Zoster Vaccine (1 of 2) 2006 Well Visit 65+ 2021 Prostate Cancer Screening-PSA 10/26/2022 10/26/2020 Covid-19 Vaccine (3 - season) 10/18/202310/2020, 11/27/2020 Influenza Vaccine (Season Ended) 2024 DTaP/Tdap/Td Vaccine (2 - Td or Tdap) 08/21/202907/2019 Abdominal Aortic Aneurysm (AAA) Screen Completed Procedures Procedure Name Priority Date/Time Associated Diagnosis [...] for Vascular Surgery Guidelines: J Vasc Surgery 2008 50: s2-s49; updated Feb 2017 J Vasc Surgery 67:2-77 THIS IS AN ELECTRONICALLY VERIFIED FINAL REPORT 06/04/2024 10:36 AM - Electronically signed by Abdullahi Owen M.D. AG T: Report ID: [id number] Reading Location: [id number] Procedure Note Abdullahi Owen MD - 06/04/2024 [...] Abdullahi Owen M.D. AG T: Report ID: [id number] Reading Location: [id number] us Vicki Norman NP IMG US PROCEDURES [...] last revised 2017. Testing performed by: [facility], [address] [place] [address]., [id number] Blood 10/26/2020 9:24 AM CDT 10/26/2020 9:42 AM CDT us Vicki Norman NP LAB BLOOD ORDERABLES Final R esult LUZ MARIA [address] [facility] [place] [address] from Last 3 Months or Most Recently Relevant to Health Maintenance Insurance [place] Dashride ACCESS OOS WORKERS COMPENSATION GENERIC Care Teams Pmo Consultant Relationship Specialty Start Date End Date Vicki Norman NP [address] [place] [id number] PCP - General 03/02/19
--- OUTSIDE RECORDS SUMMARY | 2024-07-03 13:30 | XMS_ITS | Clinical Summary ---
Author Organization [facility] Address [address] [place] [address] Care Team Providers Care Die Barber Name Role Phone Yonis Gillette DISTRIBUTING CLERK-COMMUNICATIONS STRATEGIST Primary Care Provider [phone] Source Comments [facility],non-owned Affiliates and Associated Physician Practices is amultiple site organization consisting of ambulatory clinics and hospital sitesin [place], [place], [place] and [place]. This disclosure is being madepursuant to the Care Everywhere program and may not contain all information available regarding this patient. Last updated 17.[facility] [place] Social History Tobacco Use Types Packs/Day Years Used Date Smoking Tobacco: Never Assessed Sex and Gender Information Value Date Recorded Sex Assigned at Not on file Legal Sex Male 10:18 AM VOCATIONAL TRAINING DIRECTOR Gender Identity Not on file Sexual Orientation Not on file Plan of Treatment Health Maintenance Due Date Last Done Comments COLOGUARD (AGES 45-75) - COL ON CA SCREENING 1956 COLON MONITORING 1956 COLONOSCOPY - COLON CA SCREENING 1956 CT COLONOGRAPHY - COLON CA SCREENING 1955 Colorectal Cancer Screening 1956 FIT - COLON CA SCREENING 1956 FLEX SIG - COLON CA SCREENING 1956 LIPID TESTING 1956 HEPATITIS C SCREENING 12/08/1974 DTAP/TDAP/TD VACCINES (1 - Tdap) 12/13/1975 PNEUMOCOCCAL VACCINE 50+ (1 of 1 - PCV) 2006 ZOSTER VACCINE (1 of 2) 2006 COVID-19 VACCINE ( - 2023-2 5 season) 2023 DEPRESSION SCREENING 02/17/2024 INFLUENZA VACCINE (Season Ended) 2024 Respiratory Syncytial Virus (RSV) Vaccine Pt: or over 60 yrs (1 - 1-dose 75+ series) 12/13/2031 HEPATITIS B VACCINE Aged Out No longe r eligible based on patient's age to complete this topic HIB VACCINE Aged Out No longer eligi ble based on patient's age to complete this topic HPV VACCINE Aged Out No longer eligi ble based on patient's age to complete this topic MENINGOCOCCAL (Group B) VACC INE SHARED DECISION-MAKING Aged Out No longer eligibl e based on patient's age to complete this topic MENINGOCOCCAL GROUPS A/C/Y/W VACCINE Aged Out No longer eligible b ased on patient's age to complete this topic Insurance Care Teams Die Barber Relationship Specialty Start Date End Date Yonis Gillette, DISTRIBUTING CLERK-COMMUNICATIONS STRATEGIST [address] [facility] [facility] [address] [place] [address] PCP - General Nurse Practitioner Family 03/01/19
--- OUTSIDE RECORDS SUMMARY | 2024-07-03 13:30 | XMS_ITS | Encounter Summary ---
Author Organization [facility] Address [facility] [place] [address] Care Team Providers Care Physician/Allergy/Immunology Name Role Phone Vicki Norman Primary Care Provider [phone] Encounter Details Date Type Department Care Team (Late st Contact Info) Description 06/02/2024 Results Follow-Up [facility] Family & Internal Medicine [facility] [address] [place] [address] Vicki Norman FNP [address] [place], [place] [phone] HEMOGLOBIN, GLYCOSYLATED, MAGNESIUM, FOLIC ACID SERUM, Additional followed-up results: 9 Social History Tobacco Use Types Packs/Day Years Used Date Smoking Tobacco: Former Cigarettes 0.5 45 1 - 12/01/2018 Smokeless Tobacco: Never Alcohol Use Standard Drinks/Week Comments Not Currently [...] Sex Assigned at Male 04/18/2024 2:40 PM NEGOTIATIONS DIRECTOR Legal Sex Male 7:48 PM CDT Gender Identity Male 04/18/2024 2:46 PM NEGOTIATIONS DIRECTOR Sexual Orientation Not on file documented as of this encounter Progress Notes * IRVING Craven - 06/02/2024 10:45 AM CDT His labs show that he is prediabetic with an A1c of 6.0. He should work on decreasing the sugars and carbohydrates in his diet His uric acid level is high but this could put him at risk for gout. He should continue working on decreasing the foods high in purines His PSA is slightly elevated, which has not been an issue in the past, he is having urinary symptoms, we can refer him over to urology for further evaluation of this elevated test results. It could be just elevated due to age since it is just slightly elevated we can always recheck this in 6 monthsor refer him to urologist Other labs look good documented in this encounter Plan of Treatment Not on file documented as of this encounter Visit Diagnoses Not on filedocumented in this encounter Additional Health Concerns Assessment Noted Time PHQ-9 Depression Total Score: 10 04/03/ 024 11:04 AM NEGOTIATIONS DIRECTOR documented as of this encounter Care Teams Physician/Allergy/Immunology Relationship Specialty Start Date End Date Vicki Norman FNP [address] [place] [address] PCP - General Nurse Practitioner Family 02/12/18 documented as of this encounter
[2024-07-03 13:56] LABS: Basophils Absolute Auto 0.1 K/mm3 (0.0-0.1); Basophils Percent Auto 0.3 % (0.2-1.2); Hematocrit 38.5 % (42.0-52.0); Hemoglobin 12.8 g/dL (14.0-18.0); Immature Granulocyte Absolute 0.18 K/mm3 (0.00-0.031); Lymphocytes Absolute Auto 1.63 K/mm3 (0.9-3.2); Lymphocytes Percent Auto 8.6 % (18.3-44.2); Mean Corpuscular HGB Conc 33.2 g/dl (32-36); Mean Corpuscular Hemoglobin 27.9 pg (26-34); Mean Corpuscular Volume 83.9 fl (80-100); Monocytes Absolute Auto 2.5 K/mm3 (0.1-0.6); Monocytes Percent Auto 13.4 % (2.6-8.5); Neutrophils Absolute Auto 14.5 K/mm3 (1.3-6.7); Neutrophils Percent Auto 76.7 % (45.5-73.1); Platelet Count Result 215 k/mm3 (150-375); Red Blood Count 4.59 M/mm3 (4.6-6.20); Red Cell Distribution Width 14.1 % (11.5-14.5); White Blood Count 18.9 K/mm3 (4.5-10.0)
[2024-07-03 14:00] LABS: Add Urine Microscopic? YES; Appearance Urine Clear (Clear); Bacteria Urine None Seen /hpf; Bilirubin Urine Negative (Negative); Blood Urine Negative (Negative); Color Urine Yellow (Yellow); Glucose Urine UA Negative (Negative); Ketones Urine Trace mg/dL (Negative); Leukocyte Esterase Ur Trace LEU/UL (Negative); Nitrate Urine Negative (Negative); Non Pathogenic Casts 0-2; Protein Urine 1+ mg/dL (Negative); RBC Urine 0-2 /hpf (0-2); Specific Grav Ur 1.016 (1.001-1.035); Squamous Epithelial Cell Urine None Seen /hpf (Few); WBC Urine 0-5 /hpf (0-3); pH Urine 5.5 (5.0-9.0)
[2024-07-03] MEDS: KETOROLAC 15 MG/ML VIAL (*BKC) IV PUSH (14:05)
--- OUTSIDE RECORDS SUMMARY | 2024-07-03 14:05 | XMS_ITS | Clinical Summary ---
Author Organization [facility] Address [address] [place] [address] Care Team Providers Care Estate Administrator Name Role Phone Vicki Norman [place] Primary Care Provider Allergies No known active allergies Medications vitamin [...] of breath) 02/22/2019 Chronic hepatitis C (CMS/HCC [facility]/HCC) 02/04/2019 Abdominal pain 12/21/2016 Shoulder pain, right [...] Type Department Care Team Description 06/14/[address] [address] Vicki Norman FNP Results 06/08/[address] [address] Vicki Norman FNP Lab Results 06/02/2024 Results Follow-Up [address] [address] Vicki Norman FNP HEMOGLOBIN, GLYCOSYLATED, MAGNESIUM, FOLIC ACID SERUM, Additional followed-up results: 9 06/01/2024 10:20 AM CDT Laboratory Only [address] [address] Vicki Norman FNP 06/01/2024 Scan Pointstic INFO SRVCS Scanned, [facility] Ultrasound (SCAN) 06/01/2024 Travel 04/18/2024 2:40 PM VALIDATION LEADER Office Visit [address] [address] Vicki Norman FNP Annual 04/18/2024 Travel from [...] Sex Assigned at Male 04/18/2024 2:40 PM VALIDATION LEADER Legal Sex Male 7:48 PM CDT Gender Identity Male 04/18/2024 2:46 PM VALIDATION LEADER Sexual Orientation Not on file Last Filed Vital Signs Vital Sign Reading Time Taken Comments Blood Pressure 128/76 04/18/2024 3:01 PM VALIDATION LEADER man ual Pulse 101 04/18/2024 2:47 PM VALIDATION LEADER Temperature 37 C (98.6 F) 04/18/2024 2:47 PM VALIDATION LEADER Respiratory Rate 16 04/18/2024 2:47 PM VALIDATION LEADER Oxygen Saturation 98% 04/18/2024 2:47 PM VALIDATION LEADER Inhaled Oxygen Concentration - - Weight 99.1 kg (218 lb 8 oz) 04/18/2024 2:47 PM VALIDATION LEADER Height 180.3 cm (5' 11 ) 04/18/2024 2:47 PM VALIDATION LEADER Body Mass Index 30.47 04/18/2024 2:47 PM VALIDATION LEADER Plan of Treatment Health Maintenance Due Date [...] 10/17, 03/27/2020, Additional history exists PHQ-2 (Physician [place]) Completed 04/18/2024 AAA SCREENING Completed 06/01/2024 Meningococcal [...] COLOGUARD (EXACT SCIENCE) Routine 02/27/2022 11:45 AM VALIDATION LEADER Screening for colon cancer CT LUNG SCREENING Routine 03/15/2019 Smoker from Last 3 Months or Most Recently Relevant to Health Maintenance Results * TSH W/REFLEX (06/01/2024 11:02 AM CDT) Pathologist [facility] TSH 0.943 0.358 - 3.740 uIU/ML 06/01/2024 4:13 PM CDT [facility] 06/01/2024 11:0 2 AM CDT Vicki Norman [facility] LABORATORY Final Result Performing Organization Address City/[facility] Co de Phone Number [facility] [address] [place] [address], * (ABNORMAL) HEMOGLOBIN, GLYCOSYLATED (06/01/2024 11:02 AM CDT) Pathologist [facility] HGB A1C 6.0 4.5 - 6.2 % 06/01/2024 4:22 PM CDT [facility] ESTIMATED AVG GLUCOSE 126(H) 74 - 106 MG/DL 06/01/2024 4:22 PM CDT [facility] 06/01/2024 11:0 2 AM CDT Vicki Norman [facility] LABORATORY Final Result Performing Organization Address City/[facility]/ZIP Co de Phone Number [facility] [address] [place] [address], [place] [phone] * (ABNORMAL) URINALYSIS (06/01/2024 11:02 AM CDT) COLOR (U) YELLOW 06/01/2024 4:04 PM CDT [facility] TRANSPARENCY CLEAR CLEAR 06/01/2024 4:04 PM CDT [facility] SPECIFIC GRAVITY (U) 1.025 1.003 - 1.040 06/01/2024 4:04 PM CDT [facility] U PH 6.5 5.0 - 9.0 06/01/2024 4:04 PM T [facility] PROTEIN RANDOM (U) 1+(A) NEGATIVE 06/01/2024 4:04 PM T [facility] GLUCOSE (U) NEGATIVE NEGATIVE 06/01/2024 4:04 PM T [facility] KETONES MG/DL (U) NEGATIVE NEGATIVE 06/01/2024 4:04 PM T [facility] BILIRUBIN (U) NEGATIVE NEGATIVE 06/01/2024 4:04 PM T [facility] BLOOD (U) NEGATIVE NEGATIVE 06/01/2024 4:04 PM T [facility] UROBILINOGEN 2.0 0.0 - 2.0 EU/DL 06/01/2024 4:04 PM T [facility] NITRITES NEGATIVE NEGATIVE 06/01/2024 4:04 PM T [facility] LEUKOCYTES (U) NEGATIVE NEGATIVE 06/01/2024 4:04 PM CDT [facility] RBC/HPF 0-3 0 - 3 /HPF 06/01/2024 4:04 PM CDT [facility] WBC/HPF 0-3 0 - 3 /HPF 06/01/2024 4:04 PM CDT [facility] EPI/HPF 0-3 /HPF 06/01/2024 4:04 PM CDT [facility] BACTERIA (U) TRACE(A) NONE SEEN 06/01/2024 4:04 PM CDT [facility] MUCUS FEW 06/01/2024 4:04 PM CDT [facility] URINE SPECIMEN OBTAINED BY CLEAN CATCH PROCEDURE / Unknown 06/01/2024 11:02 AM CDT Vicki Emerson [facility] URINE ORDERABLES Final Result Performing Organization Address [facility]/ZIP Co de Phone Number [facility] [address] [place] [address], [place] [phone] * VITAMIN B-12 (06/01/2024 11:02 AM CDT) VITAMIN B12 S/P/B 664 193 - 986 PG/ML 06/01/2024 4:13 PM CDT [facility] 06/01/2024 11:0 2 AM CDT us Vicki Norman [facility] LABORATORY Final Result Performing Organization Address [facility] Co de Phone Number [facility] [address] [place] [address], [place] [phone] * (ABNORMAL) PROSTATE SPECIFIC ANTIGEN,SCREENING (06/01/2024 11:02 AM CDT) PSA 4.41(H) <4.00 NG/ML 06/01/2024 3:26 PM CDT [facility] Comment: ASSAY PERFORMED BY [employer] IMMUNOASSAY METHODOLOGY USING [employer] REAGENT. PATIENT RESULTS DETERMINED BY ASSAYS FROM DIFFERENT MANUFACTURERS AND/OR BY DIFFERENT METHODS MAY NOT BE COMPARABLE. 06/01/2024 11:0 2 AM CDT us Vicki Norman [facility] LABORATORY Final Result -[facility] [place] [address] [place] [address], * (ABNORMAL) COMPREHENSIVE METABOLIC PANEL (06/01/2024 11:02 AM CDT) [facility] SODIUM S/P/B 142 136 - 145 MMOL/L 06/01/2024 4:13 PM CDT -[facility] POTASSIUM S/P/B 3.8 3.5 - 5.1 MMOL/L 06/01/2024 4:13 PM CDT -[facility] CHLORIDE S/P/B 106 98 - 107 MMOL/L 06/01/2024 4:13 PM CDT -[facility] CO2 29.3 21 - 32 MMOL/L 06/01/2024 4:13 PM CDT -[facility] GLUCOSE 114(H) 70 - 99 MG/DL 06/01/2024 4:13 PM CDT -[facility] BUN 15 7 - 18 MG/DL 06/01/2024 4:13 PM CDT -[facility] CREATININE S/P/B 1.22 0.70 - 1.30 MG/DL 06/01/2024 4:13 PM CDT -[facility] CALCIUM S/P/B 9.0 8.4 - 10.5 MG/DL 06/01/2024 4:13 PM CDT -[facility] BILIRUBIN TOTAL S/P/B 0.4 0.2 - 1.0 MG/DL 06/01/2024 4:13 PM CDT -[facility] ALKALINE PHOSPHATASE S/P/B 85 45 - 115 U/L 06/01/2024 4:13 PM CDT -[facility] AST 21 15 - 37 U/L 06/01/2024 4:13 PM CDT -[facility] ALT 32 16 - 63 U/L 06/01/2024 4:13 PM CDT [facility] TOTAL PROTEIN S/P/B 7.0 6.4 - 8.2 G/DL 06/01/2024 4:13 PM CDT [facility] [place] ALBUMIN S/P/B 3.6 3.4 - 5.0 G/DL 06/01/2024 4:13 PM CDT [facility] [place] ANION GAP 6.7 5 - 15 MMOL/L 06/01/2024 4:13 PM CDT [facility] [place] Comment:REFERENCE RANGE NOT ESTABLISHED OSMOLALITY (CALC) 296 MOSM/KG 025 4:13 PM CDT [facility] [place] Comment:REFERENCE RANGE NOT ESTABLISHED GFR ESTIMATE 65(L) >90 ML/MIN/1. 73 M2 06/01/2024 4:13 PM CDT [facility] [place] GFR NOTES GFR REFERENCE S: 06/01/2024 4:13 PM T [facility] [place] Comment: THE ESTIMATED GFR IS CALCULATED USING [...] Vicki VILLATORO LABORATORY Final Result [facility] [address] [place] [address], * LIPID PANEL (06/01/2024 11:02 AM CDT) CHOLESTEROL 121 <200 MG/DL 06/01/2024 4:13 PM CDT [facility] TRIGLYCERIDES 104 <150 MG/DL 06/01/2024 4:13 PM CDT [facility] HDL 48 >40 MG/DL 06/01/2024 4:13 PM CDT [facility] LDL-C 52 <100 MG/DL 06/01/2024 4:13 PM CDT [facility] VLDL CALCULATION 21 5 - 28 MG/DL 06/01/2024 4:13 PM CDT [facility] CHOL/HDL RATIO 2.5 0.0 - 4.0 06/01/2024 4:13 PM CDT [facility] LDL/HDL 1.1 0.41 - 2.13 06/01/2024 4:13 PM CDT [facility] NON HDL CHOLESTEROL 73 <140 MG/DL 06/01/2024 4:13 PM CDT [facility] 06/01/2024 11:0 2 AM CDT Vicki ALLISONP LABORATORY Final Result Performing Organization Address City/[facility]/ZIP Co de Phone Number [facility] [address] [place] [address], * FOLIC ACID SERUM (06/01/2024 11:02 AM CDT) FOLATE 9.9 8.6 - 58.9 NG/ML 06/01/2024 3:28 PM CDT [facility] 06/01/2024 11:0 2 AM CDT Vicki Norman [facility] LABORATORY Final Result [facility] [address] [place] [address], * (ABNORMAL) CBC W/DIFF AUTOMATED (06/01/2024 11:02 AM CDT) [facility] WBC 6.77 4.00 - 10.80 x10'3/uL 06/01/2024 2:48 PM CDT [facility] RBC 4.95 4.50 - 6.10 x10'6/uL 06/01/2024 2:48 PM CDT [facility] HGB 13.7 13.0 - 18.0 G/DL 06/01/2024 2:48 PM CDT [facility] HCT 42.5 37.0 - 52.0 % 06/01/2024 2:48 PM CDT [facility] MCV 85.9 78.0 - 100.0 FL 06/01/2024 2:48 PM CDT [facility] MCH 27.7 27.0 - 31.0 PG 06/01/2024 2:48 PM CDT [facility] MCHC 32.2(L) 33.0 - 36.0 G/DL 06/01/2024 2:48 PM CDT [facility] RDW 13.7 11.5 - 14.5 % 06/01/2024 2:48 PM CDT [facility] PLT 277 150 - 350 x10'3/uL 06/01/2024 2:48 PM CDT [facility] MPV 9.8 7.4 - 10.4 FL 06/01/2024 2:48 PM CDT [facility] DIFFERENTIAL TYPE AUTOMATED DIFFERENTIAL 06/01/2024 2:48 PM CDT [facility] NEUTROPHILS % 57.6 % 06/01/2024 2:48 PM CDT [facility] LYMPHOCYTES % 30.0 % 06/01/2024 2:48 PM CDT [facility] MONOCYTES % 6.8 % 06/01/2024 2:48 PM CDT -[facility] EOSINOPHILS % 4.6 % 06/01/2024 2:48 PM CDT [facility] BASOPHILS % 0.4 % 06/01/2024 2:48 PM CDT [facility] IMMATURE GRANS % 0.6 % 06/01/2024 2:48 PM CDT -[facility] ABS. NEUTROPHILS 3.90 1.60 - 8.30 x10'3/uL 06/01/2024 2:48 PM CDT -[facility] ABS. LYMPHOCYTES 2.03 0.80 - 4.70 x10'3/uL 06/01/2024 2:48 PM CDT [facility] ABS. MONOCYTES 0.46 0.00 - 1.50 x10'3/uL 06/01/2024 2:48 PM CDT [facility] ABS. EOSINOPHILS 0.31 0.00 - 0.40 x10'3/uL 06/01/2024 2:48 PM CDT [facility] ABS. BASOPHILS 0.03 0.00 - 0.20 x10'3/uL 06/01/2024 2:48 PM CDT [facility] ABS. IMMATURE GRANULOCYTES 0.04(H) 0.00 - 0.03 x10'3/uL 06/01/2024 2:48 PM CDT [facility] 06/01/2024 11:0 2 AM CDT us Vicki Norman [facility] LABORATORY Final Result -[facility] [address] [place] [address], * VITAMIN D, 25 [place] (06/01/2024 11:02 AM CDT) VITAMIN D 25 HYDROXY TOTAL S/P/B 65.0 30 - 100 NG/ML 06/01/2024 4:13 PM CDT [facility] Comment: DEFICIENT <20 INSUFFICIENT 20-30 SUFFICIENT 30-100 06/01/2024 11:0 2 AM CDT Vicki Norman DYNAMOTOR REPAIRER LABORATORY Final Result Performing Organization Address City/[facility]/ZIP Co de Phone Number [address] [address], * MAGNESIUM (06/01/2024 11:02 AM CDT) MAGNESIUM 2.0 1.8 - 2.4 MG/DL 06/01/2024 4:13 PM CDT [facility] 06/01/2024 11:0 2 AM CDT Vicki Norman DYNAMOTOR REPAIRER LABORATORY Final Result Performing Organization Address [facility] Co de Phone Number [address] [address], * (ABNORMAL) URIC ACID BLOOD (06/01/2024 11:02 AM CDT) URIC ACID 7.4(H) 3.5 - 7.2 MG/DL 06/01/2024 3:28 PM CDT [facility] 06/01/2024 11:0 2 AM CDT us Vicki Norman DYNAMOTOR REPAIRER LABORATORY Final Result Performing Organization Address City/[facility] Co de Phone Number [address] [address], [place] [phone] * US AORTA (AAA) SCREEN - GENERIC (06/01/2024) Anatomical Region Laterality Modality Other 06/01/2024 us [facility] Scanned SCANNING Final Resu lt * COLOGUARD (EXACT SCIENCE) (02/27/2022 11:45 AM VALIDATION LEADER) COLOGUARD RESULT Negative Negative [employer] Admittor (CLIA #:[id number]) Comment: NEGATIVE TEST RESULT. A negative Cologuard [...] Kidd et al, N Engl J Med 2014;370(14):5737-6544) The normal value (reference range) for this assay is negative. COLOGUARD RE-SCREENING RECOMMENDATION: Periodic colorectal cancer screening is an important part of preventive healthcare for asymptomatic individuals at average risk for colorectal cancer. Following a negative Cologuard result, the [place] Cancer Society and U.S. Multi-Society Task Force screening guidelines recommend a Cologuard re-screening interval of 3 years. References: [place] Cancer Society Guideline for Colorectal Cancer Screening: https://www.cancer.org/cancer/nigvw-ymhoeh-uepwzs/xbncjvxfd-vwnfnrwfa-hubdqhc/ac s-rec ommendations.html.; Brandon SWAIN, Frances CR, Eric BlackburnK, Colorectal Cancer Screening: Recommendations for Physicians and Patients from the U.S. Multi-Society Task Force on Colorectal Cancer Screening , Am J Gastroenterology 2017; 112:3989-5419. TEST DESCRIPTION: Composite algorithmic analysis of stool [...] (Richar Barajas al, N Engl J Med 2014;370(14):2408-9011.) Cologuard may produce a false negative or false positive result (no colorectal cancer or precancerous polyp present at colonoscopy follow up). A negative Cologuard test result does not guarantee the absence of CRC or advanced adenoma (pre-cancer). The current Cologuard screening interval is every 3 years. ([place] Cancer Society and U.S. Multi-Society Task Force). Cologuard performance data in a 10,000 patient pivotal study using colonoscopy as the reference method can be accessed at the following location: www.[employer]/results. Additional description of the Cologuard test process, warnings and precautions can be found at www.[employer].com. STOOL STOOL SPECIMEN / Unknown 02/27/2022 11:45 AM VALIDATION LEADER 03/01/2022 9:40 AM VALIDATION LEADER us Vicki Norman DYNAMOTOR REPAIRER BODY FLUIDS AND STOOLS ORDERAB LES Final Result [email or web address], [employer] [address] [place] [address], [email or web address] (CLIA #:[id number]) [address] [place] [place] [address] * CT LUNG SCREENING (03/15/2019) Anatomical Region Laterality Modality Chest Computed Tomogra phy Vicki VILLATORO CT Edited Result - Final from Last 3 Months or Most Recently Relevant to Health Maintenance Insurance Care Teams Estate Administrator Relationship Specialty Start Date End Date Vicki Norman FNP [address] [place] [address] PCP - General Nurse Practitioner Family 02/12/18
--- OUTSIDE RECORDS SUMMARY | 2024-07-03 14:05 | XMS_ITS | Clinical Summary ---
Author Organization [facility] Address [address] [place] [address] Care Team Providers Care Dietitian Assistant Name Role Phone Vicki Norman NP Primary Care Provider [phone] Allergies No known active allergies Medications erythromycin (ILOTYCIN) ophthalmic ointment Place a 1/2 inch ribbon of ointment into the lower eyelid four times per day for 5 days. 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 AG T: Report ID: [id number] Reading Location: [id number] Procedure Note Abdullahi Owen MD - 06/04/2024 [...] Abdullahi Owen M.D. AG T: Report ID: [id number] Reading Location: [id number] us Vicki Norman NP IMG US PROCEDURES [...] data last revised 2017. Testing performed by: [facility], [address] [place] [address]., [address] Blood 10/26/2020 9:24 AM CDT 10/26/2020 9:42 AM CDT us Vicki Norman NP LAB BLOOD ORDERABLES Final R esult LUZ MARIA [address] [facility] Department [place] [address] from Last 3 Months or Most Recently Relevant to Health Maintenance [place] [employer] ACCESS OOS WORKERS COMPENSATION GENERIC Care Teams Dietitian Assistant Relationship Specialty Start Date End Date Vicki Norman NP [address] [place] [address] PCP - General 03/02/19
--- OUTSIDE RECORDS SUMMARY | 2024-07-03 14:05 | XMS_ITS | Referral Summary ---
Author Organization [facility] Address [address] [place] [address] Care Team Providers Care Advice Clerk Name Role Phone Vicki Norman NP Primary Care Provider Encounters Date Type Department Care Team Description 06/01/2024 7:20 AM CDT - 06/01/2024 11:59 PM CDT Hospital Encounter 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 AG T: Report ID: [id number] Reading Location: [id number] Procedure Note Abdullahi Owen MD - 06/04/2024 [...] Abdullahi Owen M.D. AG T: Report ID: [id number] Reading Location: [id number] us Vicki Norman NP IMG US PROCEDURES [...] revised 2017. Testing performed by: [facility], [address] [place] [address]., [address] Blood 10/26/2020 9:24 AM CDT 10/26/2020 9:42 AM CDT us Vicki Norman NP LAB BLOOD ORDERABLES Final R esult LUZ MARIA [address] [facility] Department [place] [address] from Last 3 Months or Most Recently Relevant to Health Maintenance Insurance [place] BL[place] ACCESS OOS WORKERS COMPENSATION GENERIC Care Teams Advice Clerk Relationship Specialty Start Date End Date Vicki Norman NP [address] [place] [address] PCP - General 03/02/19
--- OUTSIDE RECORDS SUMMARY | 2024-07-03 14:05 | XMS_ITS | Clinical Summary ---
Author Organization [facility] Address [address] [place] [address] Care Team Providers Care Green Chain Off Bearer Name Role Phone Unavailable Primary Care Provider [...]
--- OUTSIDE RECORDS SUMMARY | 2024-07-03 14:05 | XMS_ITS | Encounter Summary ---
Author Organization [facility] Address [facility] [place] [address] Care Team Providers Care Foreign Languages Professor Name Role Phone Vicki Norman Primary Care Provider [phone] Encounter Details Date Type Department Care Team (Late st Contact Info) Description 06/02/2024 Results Follow-Up [facility] Family & Internal Medicine [facility] [address] [place] [address] Vicki Norman FNP [address] [place], [place] [id number] HEMOGLOBIN, GLYCOSYLATED, MAGNESIUM, FOLIC ACID SERUM, Additional [...] Sex Assigned at Male 04/18/2024 2:40 PM ASSISTANT GROCERY Legal Sex Male 7:48 PM CDT Gender Identity Male 04/18/2024 2:46 PM ASSISTANT GROCERY Sexual Orientation Not on file documented as [...] Total Score: 10 04/03/ 024 11:04 AM ASSISTANT GROCERY documented as of this encounter Care Teams Foreign Languages Professor Relationship Specialty Start Date End Date Vicki Norman FNP [address] [place] [address] PCP - General Nurse Practitioner Family 02/12/18 documented as of this encounter
--- OUTSIDE RECORDS SUMMARY | 2024-07-03 14:05 | XMS_ITS | Clinical Summary ---
Author Organization [facility] Address [address] [place] [address] Care Team Providers Care Wreath Machine Operator Name Role Phone Yonis Gillette NECKTIE OPERATOR POCKETS AND PIECES-MARTIAL ARTS INSTRUCTOR Primary Care Provider [phone] Source Comments [facility],non-owned Affiliates and Associated Physician Practices is amultiple site organization consisting of ambulatory clinics and hospital sitesin [place], [place], [place] and [place]. This disclosure is being madepursuant to the Care Everywhere program and may not contain all information available regarding this patient. Last updated 17.[facility] [employer] Social History Tobacco Use Types Packs/Day Years Used Date Smoking Tobacco: Never Assessed Sex and Gender Information Value Date Recorded Sex Assigned at Not on file Legal Sex Male 10:18 AM PLANER OPERATOR Gender Identity Not on file Sexual Orientation [...] to complete this topic Insurance Care Teams Wreath Machine Operator Relationship Specialty Start Date End Date Yonis Gillette, NECKTIE OPERATOR POCKETS AND PIECES-MARTIAL ARTS INSTRUCTOR [address] [facility] [address] [place] [address] PCP - General Nurse Practitioner Family 03/01/19
[2024-07-03] MEDS: SODIUM CHLORIDE 0.9% IV 1,000 ML 999 ML IV CONT ×2 (14:06→15:41)
[2024-07-03 14:07] LABS: Lactic Acid Reflex 0.8 mmol/L (0.7-2.0)
[2024-07-03 14:08] LABS: Alanine Aminotransferase 19 U/L (6-50); Alkaline Phosphatase 81 U/L (38-126); Anion Gap 8 mmol/L (4-12); Aspartate Amino Transferase 31 U/L (17-59); Bilirubin,Total 0.9 mg/dL (0.2-1.3); Blood Urea Nitrogen 18 mg/dL (9-20); Calcium 9.4 mg/dL (8.4-10.2); Carbon Dioxide 24 mmol/L (22-30); Chloride 100 mmol/L (98-107); Estimated CRCL calculation 39 ml/min; Estimated Glomerular Filt Rate 39; Glucose 126 mg/dL (65-110); Lipase 42 U/L (23-300); Potassium 3.7 mmol/L (3.4-5.0); Sodium 132 mmol/L (137-145)
--- NOTE | 2024-07-03 14:30 | ED_ITS ---
HPI - General Adult General Chief complaint: Abdominal Pain Stated complaint: from for PE R/O Time Seen by Provider: 07/03/24 13:48 History of Present Illness HPI narrative: Patient is a 68-year-old male who presents ER with cough and shortness of breath. Seen in urgent care with abnormal chest x-ray and was told he needs to be evaluated for a PE. He denies coughing up blood but does have productive cough that is whitish. He is having fevers. Reports he is otherwise healthy. Related Data Home Medications ?Medication ?Instructions ?Recorded ?Confirmed ?Last Taken ?Type amlodipine 10 mg tablet 06/21/20 06/21/20 Unknown History meloxicam 15 mg tablet 06/21/20 Unknown History sofosbuvir 400 mg-velpatasvir 100 tablet 06/21/20 Unknown History mg tablet (Epclusa) Allergies Allergy/AdvReac Type Severity Reaction Status Date / Time No Known Allergies Allergy Verified 07/03/24 13:29 Review of Systems 2 Review of Systems: All systems reviewed & are unremarkable except as noted in HPI and below Constitutional: Constitutional: Reports no additional constitutional complaints ENT: Reports system reviewed and no additional complaints, except as documented Cardiovascular: Cardiovascular: Reports no additional cardiovascular complaints Respiratory: Respiratory: Reports no additional respiratory complaints Gastrointestinal: Gastrointestinal: Reports no additional gastrointestinal complaints [facility] Past Medical History Medical History (Updated 07/03/24 @ 16:18 by Johnson Good MD) Anemia CKD (chronic kidney disease) Hyponatremia Social History Social History Gender identity (if verbalized by the patient): Male Exam 2 Narrative: GENERAL: Well-appearing, well-nourished, and in no acute distress. HEAD: Normocephalic, atraumatic. ENT: Mucous membranes moist. NECK: Supple. CHEST: Clear to auscultation. No respiratory distress. HEART: Tachycardic and regular. Normal peripheral pulses. ABDOMEN: Soft, nontender, nondistended. EXTREMITIES: Normal range of motion. No edema. SKIN: Warm, dry, no rash. NEURO: Alert and oriented x3. PSYCH: Normal mood and affect. Course Course Emergency Course: Concern for sepsis. 30 milliliter/kilogram fluid bolus given. Elevated creatinine but likely chronic. Significant elevated white blood cell count. Negative lactate. Broad-spectrum antibiotics started. Admit for observation. CTA shows large nodular density likely pneumonia given air bronchograms. Vital Signs Vital signs: Vital Signs Temperature 102.6 F H 07/03/24 13:29 Pulse Rate 116 H 07/03/24 13:29 Respiratory Rate 20 07/03/24 13:29 Blood Pressure 139/93 H 07/03/24 13:29 Pulse Oximetry 100 07/03/24 13:29 Oxygen Delivery Room Air 07/03/24 13:29 Temperature 102.6 F H 07/03/24 13:29 Pulse Rate 116 H 07/03/24 13:29 Respiratory Rate 20 07/03/24 13:29 Blood Pressure 139/93 H 07/03/24 13:29 Pulse Oximetry 100 07/03/24 13:29 Oxygen Delivery Room Air 07/03/24 13:29 Medical Decision Making Vital Signs Vital Signs: Vital Signs Temperature 102.6 F H 07/03/24 13:29 Pulse Rate 116 H 07/03/24 13:29 Respiratory Rate 07/03/24 13:29 Blood Pressure 139/93 H 07/03/24 13:29 Pulse Oximetry 100 07/03/24 13:29 Oxygen Delivery Room Air 07/03/24 13:29 Temperature 102.6 F H 07/03/24 13:29 Pulse Rate 116 H 07/03/24 13:29 Respiratory Rate 07/03/24 13:29 Blood Pressure 139/93 H 07/03/24 13:29 Pulse Oximetry 07/03/24 13:29 Oxygen Delivery Room Air 07/03/24 13:29 Lab Data 07/03/24 13:50 07/03/24 13:50 Labs: Lab Results 07/03/24 07/03/24 Range/Units 13:50 13:51 WBC 18.9 H (4.5-10.0) K/mm3 RBC 4.59 L (4.6-6.20) M/mm3 Hgb 12.8 L (14.0-18.0) g/dL Hct 38.5 L (42.0-52.0) % MCV 83.9 (80-100) fl MCH 27.9 (26-34) pg MCHC 33.2 (32-36) g/dl RDW 14.1 (11.5-14.5) % Plt Count 215 (150-375) k/mm3 MPV 10.0 (7.4-10.4) fl Immature Gran % (Auto) 1.0 H (0-0.5) % Neut % (Auto) 76.7 H (45.5-73.1) % Lymph % (Auto) 8.6 L (18.3-44.2) % [place] % (Auto) 13.4 H (2.6-8.5) % Eos % (Auto) 0.0 (0-4.4) % Baso % (Auto) 0.3 (0.2-1.2) % Lymph # (Auto) 1.63 (0.9-3.2) K/mm3 [place] # (Auto) 2.5 H (0.1-0.6) K/mm3 Eos # (Auto) 0.0 (0-0.3) K/mm3 Baso # (Auto) 0.1 (0.0-0.1) K/mm3 Abs Immat Gran (auto) 0.18 H (0.00-0.031) K/mm3 Absolute Neuts (auto) 14.5 H (1.3-6.7) K/mm3 Absolute Nucleated RBC 0.000 (0.0-0.012) K/mm3 Nucleated RBC % 0.0 (0.0-0.2) % Sodium 132 L (137-145) mmol/L Potassium 3.7 (3.4-5.0) mmol/L Chloride 100 (98-107) mmol/L Carbon Dioxide 24 (22-30) mmol/L Anion Gap 8 (4-12) mmol/L BUN 18 (9-20) mg/dL Creatinine 1.77 H (0.7-1.3) mg/dL Estim Creat Clear Calc 39 ml/min Estimated GFR 39 L (59 - ) Glucose 126 H (65-110) mg/dL Lactic Acid 0.8 (0.7-2.0) mmol/L Calcium 9.4 (8.4-10.2) mg/dL Total Bilirubin 0.9 (0.2-1.3) mg/dL AST 31 (17-59) U/L ALT 19 (6-50) U/L Alkaline Phosphatase 81 (38-126) U/L Total Protein 8.0 (6.3-8.2) g/dL Albumin 4.0 (3.5-5.1) g/dL Lipase 42 (23-300) U/L Urine Color Yellow (Yellow) Urine Appearance Clear (Clear) Urine pH 5.5 (5.0-9.0) Ur Specific [place] 1.016 (1.001-1.035) Urine Protein 1+ H (Negative) mg/dL Urine Glucose (UA) Negative (Negative) mg/dL Urine Ketones Trace H (Negative) mg/dL Ur Blood (Man) Negative (Negative) Urine Nitrate Negative (Negative) Urine Bilirubin Negative (Negative) Urine Urobilinogen 2.0 H (<2.0) mg/dL Leukocyte Esterase Rfl Trace H (Negative) ANTHONY/UL Urine RBC 0-2 (0-2) /hpf Urine WBC 0-5 (0-3) /hpf Ur Squamous Epith Cells None seen (Few) /hpf Urine Bacteria None seen /hpf Urine Casts 0-2 Discharge Plan Discharge Clinical Impression: Pneumonia, Sepsis Patient Disposition: Still a Patient Condition: Stable Patient Language: Uzbek Prescriptions: No Action meloxicam 15 mg tablet amlodipine 10 mg tablet sofosbuvir-velpatasvir [Epclusa] 400-100 mg tablet Follow-up/Referrals: EDUAR,JUAN RAMON CERVANTES [Primary Care Provider] -
--- NOTE | 2024-07-03 15:29 | P.HP_ITS ---
H&P: HPI History of Present Illness Date/Time: 07/03/24 15:29 Chief Complaint: Abdominal pain Narrative: 68-year-old male presents the hospital with abdominal pain. Patient originally went to urgent care with a temperature of 102.6? heart rate of 116 he was referred to the hospital for further evaluation. Patient states that he has had decreased appetite due to abdominal pain and generalized malaise. He complains of nausea but denies vomiting. Patient does have some short of breath but is not requiring oxygen. He complains of a cough however a does not feel like he could get up junk out of his lungs. In the ED he has leukocytosis of 18.9, hemoglobin of 12.8, sodium of 132, creatinine of 1.77, GFR of 39, UA shows trace leukocyte esterase, chest CTA shows no pulmonary embolism, left lower lobe infiltrates. Review of Systems Review of Systems: 12 systems were reviewed and are negativ e except for as per HPI. [facility] Past Medical History Medical History (Updated 07/03/24 @ 22:15 by Kesha Gray, [employer]OUND TECHNICIAN) Hypertension BPH (benign prostatic hyperplasia) Anemia CKD (chronic kidney disease) Hyponatremia Social History Social History Gender identity (if verbalized by the patient): Male Meds Home Medications and Allergies Home Medications ?Medication ?Instructions ?Recorded ?Confirmed ?Type amlodipine 10 mg tablet 10 mg PO DAILY 06/21/20 07/03/24 History meloxicam 15 mg tablet 15 mg PO PRN 06/21/20 07/03/24 History bupropion HCl 300 mg 24 hr tablet, 300 mg PO DAILY 07/03/24 07/03/24 History extended release losartan 100 mg tablet 100 mg PO DAILY 07/03/24 07/03/24 History nebivolol 2.5 mg tablet 2.5 mg PO DAILY 07/03/24 07/03/24 History tamsulosin 0.4 mg capsule 0.4 mg PO DAILY 07/03/24 07/03/24 History Allergies Allergy/AdvReac Type Severity Reaction Status Date / Time No Known Allergies Allergy Verified 07/03/24 13:29 Vital Signs Vital Signs - 24 hr 07/03/24 13:29 Temperature 102.6 F H Pulse Rate 116 H Respiratory Rate 20 Blood Pressure 139/93 H Pulse Oximetry 100 Oxygen Delivery Room Air Exam Narrative: General: well appearing, appears stated age. HEENT: normocephalic, atraumatic. Mucous membranes moist. EOMI, PERRLA, eddie ateral sclera anicteric, no conjunctival injection. Neck supple without JVD, lymphadenopathy, or bruit. Respiratory: clear to ascultation bilaterally. No rales/rhonic/wheezes. Cardiovascular: Regular rate and rhythm, normal S1-S2 upon ascultation. No murmurs, rubs, or clicks. PMI is nondisplaced, capillary refill less than 3 second. Abdomen: Soft, round, no pulsatile masses, nondistended and nontender. No rebound, no guarding. No CVA tenderness, no hepatosplenomegaly. Bowel sounds present to all four quadrants. No high pitch or tinkling sounds, resonant to percussion. Extremities: No cyanosis, clubbing, or edema present. Pulses are palpable 2/2. Active ROM to all four extremities. Neuro: Alert and orientated x 4. PERRLA. Cranial nerves 2-12 intact without focal deficit. Skin: Warm, dry, and intact, without rash, erythema, or lesion. Psych: pleasant, cooperative, normal speech, normal affect, no hallucinations, no dysarthia H&P: Results Labs Labs: Short CBC 07/03/24 Range/Units 13:50 WBC 18.9 H (4.5-10.0) K/mm3 Hgb 12.8 L (14.0-18.0) g/dL Hct 38.5 L (42.0-52.0) % Plt Count 215 (150-375) k/mm3 BMP 07/03/24 13:50 Sodium 132 L Potassium 3.7 Chloride 100 Carbon Dioxide 24 BUN 18 Creatinine 1.77 H Glucose 126 H Calcium 9.4 Liver Function 07/03/24 Range/Units 13:50 Total Bilirubin 0.9 (0.2-1.3) mg/dL AST 31 (17-59) U/L ALT 19 (6-50) U/L Alkaline Phosphatase 81 (38-126) U/L Albumin 4.0 (3.5-5.1) g/dL Urine 07/03/24 Range/Units 13:51 Urine Color Yellow (Yellow) Urine Appearance Clear (Clear) Urine pH 5.5 (5.0-9.0) Ur Specific [place] 1.016 (1.001-1.035) Urine Protein 1+ H (Negative) mg/dL Urine Glucose (UA) Negative (Negative) mg/dL Assessment and Plan Assessment and plan (1) Sepsis: Code(s): A41.9 - Sepsis, unspecified organism Status: Acute Assessment and Plan: Secondary to pneumonia IV Zithromax and Rocephin Sepsis bolus Blood cultures pending CBC in the morning (2) Pneumonia: Code(s): J18.9 - Pneumonia, unspecified organism Status: Acute Assessment and Plan: IV Zithromax and Rocephin Robitussin IVF (3) Fever: Code(s): R50.9 - Fever, unspecified Status: Acute Assessment and Plan: Tylenol as needed (4) Anemia: Code(s): D64.9 - Anemia, unspecified Status: Acute Assessment and Plan: Anemia workup pending (5) CKD (chronic kidney disease): Code(s): N18.9 - Chronic kidney disease, unspecified Status: Acute Assessment and Plan: BMP morning (6) Hyponatremia: Code(s): E87.1 - Hypo-osmolality and hyponatremia Status: Acute Assessment and Plan: IVF Repeat morning (7) BPH (benign prostatic hyperplasia): Code(s): N40.0 - Benign prostatic hyperplasia without lower urinary tract symptoms Status: Acute Assessment and Plan: Restart Flomax (8) Hypertension: Code(s): I10 - Essential (primary) hypertension Status: Acute Quality VTE Prophylaxis VTE prophylaxis: mechanical ordered and pharmacologic ordered Hospitalist MIPS Advance Care Plan I have confirmed that the patient's Advanced Care Plan is present, code status is documented, or surrogate decision maker is listed in patient medical record.: Yes Medication Reconciliation I have utilized all available resources to obtain, update and review the patients current medications (includes all prescriptions, OTC, herbals, cannabis, and nutritional supplements).: Yes
[2024-07-03] MEDS: SODIUM CHLORIDE 0.9% IV 900 ML 999 ML IV CONT (15:41)
--- NOTE | 2024-07-03 16:41 | PC.NURSE ---
advised pt to keep arm straight for fluids to infuse
[2024-07-03] MEDS: AZITHROMYCIN 500 MG/NS 250 ML 500 MG/250 ML BAG 250 MG IVPB (18:09)
--- NOTE | 2024-07-03 18:49 | PC.NURSE ---
called pharmacy to have Jinny sent up
[2024-07-03 19:12] VITALS: BMI 29.5
[2024-07-03 20:00] VITALS: O2SAT 94
[2024-07-03 20:45] VITALS: BP 146/69; PULSE 108; RESP 16; TEMP 36.9; O2SAT 94
[2024-07-03] MEDS: DOCUSATE SODIUM 100 MG CAPSULE PO (22:14)
[2024-07-03] MEDS: guaiFENesin/DEXTROMETHORPHAN 10 ML UDC PO (22:18)
[2024-07-03] MEDS: SODIUM CHLORIDE 0.9% IV 1,000 ML 125 ML IV CONT (22:18)
[2024-07-04] MEDS: guaiFENesin/DEXTROMETHORPHAN 10 ML UDC PO ×5 (05:09→20:52)
[2024-07-04 05:44] VITALS: BP 165/74; PULSE 108; RESP 16; TEMP 37.4; O2SAT 96
[2024-07-04 06:14] LABS: Anion Gap 10 mmol/L (4-12); Blood Urea Nitrogen 13 mg/dL (9-20); Calcium 8.4 mg/dL (8.4-10.2); Carbon Dioxide 22 mmol/L (22-30); Chloride 101 mmol/L (98-107); Estimated CRCL calculation 53 ml/min; Estimated Glomerular Filt Rate 55; Glucose 137 mg/dL (65-110); Potassium 3.3 mmol/L (3.4-5.0); Sodium 133 mmol/L (137-145)
[2024-07-04 06:21] LABS: Basophils Percent Auto 0.2 % (0.2-1.2); Hematocrit 35.5 % (42.0-52.0); Hemoglobin 11.1 g/dL (14.0-18.0); Immature Granulocyte Absolute 0.27 K/mm3 (0.00-0.031); Immature Granulocyte Percent A 1.6 % (0-0.5); Lymphocytes Percent Auto 6.1 % (18.3-44.2); Mean Corpuscular HGB Conc 31.3 g/dl (32-36); Mean Corpuscular Volume 86.4 fl (80-100); Mean Platelet Volume 10.6 fl (7.4-10.4); Monocytes Absolute Auto 2.1 K/mm3 (0.1-0.6); Monocytes Percent Auto 12.8 % (2.6-8.5); Neutrophils Absolute Auto 13.1 K/mm3 (1.3-6.7); Neutrophils Percent Auto 79.3 % (45.5-73.1); Platelet Count Result 223 k/mm3 (150-375); Red Blood Count 4.11 M/mm3 (4.6-6.20); White Blood Count 16.5 K/mm3 (4.5-10.0)
[2024-07-04 06:43] LABS: Iron 25 ug/dL (49-181)
[2024-07-04 06:52] LABS: Percent Iron Saturation 10 % (20-50)
[2024-07-04 07:12] LABS: Thyroid Stimulating Hormone Reflex 0.973 uIU/mL (0.465-4.68)
[2024-07-04 07:21] LABS: Folic Acid 7.5 ng/mL (2.76->20)
--- NOTE | 2024-07-04 07:44 | ECG_ITS ---
Test Date: 2024-07-04 09:50:31 Measurements Intervals [place] Rate: 100 P: 71 ME: 144 QRS: -30 QRSD: 106 T: 42 QT: 319 QTc: 412 Interpretive Statements SINUS TACHYCARDIA POSSIBLE LEFT ATRIAL ENLARGEMENT [-0.1mV P-WAVE IN V1/V2] BORDERLINE LEFT AXIS DEVIATION [QRS AXIS < -20] ABNORMAL RHYTHM ECG No previous ECG available for comparison Electronically Signed On 07-04-2024 10:54:58 CDT by Paul Sands M.D.
[2024-07-04 08:00] VITALS: PULSE 90; RESP 18; O2SAT 95
[2024-07-04] MEDS: amLODIPine BESYLATE 10 MG TABLET PO (09:44)
[2024-07-04] MEDS: DOCUSATE SODIUM 100 MG CAPSULE PO (09:44)
[2024-07-04] MEDS: TAMSULOSIN HCL 0.4 MG CAPSULE PO (09:44)
[2024-07-04] MEDS: buPROPion HCL XL (24 HR) 150 MG TABCR 300 MG PO (09:44)
[2024-07-04] MEDS: LOSARTAN POTASSIUM 100 MG TABLET PO (09:44)
[2024-07-04] MEDS: NEBIVOLOL HCL 2.5 MG TABLET PO (09:48)
[2024-07-04] MEDS: SODIUM CHLORIDE 0.9% IV 1,000 ML 75 ML IV CONT (09:49)
--- NOTE | 2024-07-04 12:23 | P.PNIM_ITS ---
Progress Note: A&P Assessment and Plan (1) Sepsis: Code(s): A41.9 - Sepsis, unspecified organism Status: Acute Assessment and Plan: Secondary to pneumonia IV Zithromax and Rocephin Sepsis bolus Blood cultures pending CBC in the morning (2) Pneumonia: Code(s): J18.9 - Pneumonia, unspecified organism Status: Acute Assessment and Plan: IV Zithromax and Rocephin Robitussin IVF (3) Fever: Code(s): R50.9 - Fever, unspecified Status: Acute Assessment and Plan: Tylenol as needed (4) Anemia: Code(s): D64.9 - Anemia, unspecified Status: Acute Assessment and Plan: Anemia low iron monitor H&h transfuse if Hb less than 7 patient need to follow with PCP for further work up (5) CKD (chronic kidney disease): Code(s): N18.9 - Chronic kidney disease, unspecified Status: Acute Assessment and Plan: BMP morning (6) Hyponatremia: Code(s): E87.1 - Hypo-osmolality and hyponatremia Status: Acute Assessment and Plan: IVF Repeat morning (7) BPH (benign prostatic hyperplasia): Code(s): N40.0 - Benign prostatic hyperplasia without lower urinary tract symptoms Status: Acute Assessment and Plan: Restart Flomax (8) Hypertension: Code(s): I10 - Essential (primary) hypertension Status: Acute Subjective Date/time seen: 07/04/24 12:23 Interval history: per HPi: 68-year-old male presents the hospital with abdominal pain. Patient originally went to urgent care with a temperature of 102.6? heart rate of 116 he was referred to the hospital for further evaluation. Patient states that he has had decreased appetite due to abdominal pain and generalized malaise. He complains of nausea but denies vomiting. Patient does have some short of breath but is not requiring oxygen. He complains of a cough however a does not feel like he could get up junk out of his lungs. In the ED he has leukocytosis of 18.9, hemoglobin of 12.8, sodium of 132, creatinine of 1.77, GFR of 39, UA shows trace leukocyte esterase, chest CTA shows no pulmonary embolism, left lower lobe infiltrates. 07/04/24 Patient was seen and examined at bedside. he is feeling fine. Denies any chest pain, abd pain, nausea or vomiting. Continue treatment for dehydration, Deon and sepsis secondary to Pneumonia. follow culture results. Review of Systems Review of Systems: 12 systems were reviewed and are negativ e except for as per HPI. Exam Narrative: General: well appearing, appears stated age. HEENT: normocephalic, atraumatic. Mucous membranes moist. EOMI, PERRLA, bilateral sclera anicteric, no conjunctival injection. Neck supple without JVD, lymphadenopathy, or bruit. Respiratory: clear to ascultation bilaterally. No rales/rhonic/wheezes. Cardiovascular: Regular rate and rhythm, normal S1-S2 upon ascultation. No murmurs, rubs, or clicks. PMI is nondisplaced, capillary refill less than 3 second. Abdomen: Soft, round, no pulsatile masses, nondistended and nontender. No rebound, no guarding. No CVA tenderness, no hepatosplenomegaly. Bowel sounds present to all four quadrants. No high pitch or tinkling sounds, resonant to percussion. Extremities: No cyanosis, clubbing, or edema present. Pulses are palpable 2/2. Active ROM to all four extremities. Neuro: Alert and orientated x 4. PERRLA. Cranial nerves 2-12 intact without focal deficit. Skin: Warm, dry, and intact, without rash, erythema, or lesion. Psych: pleasant, cooperative, normal speech, normal affect, no hallucinations, no dysarthia Objective Data Vital Signs Vital Signs: Vital Signs - 24 hr 07/03/24 13:29 07/03/24 20:00 07/03/24 20:45 Temperature 102.6 F H 98.4 F Pulse Rate 116 H 108 H Respiratory Rate 20 16 Blood Pressure 139/93 H 146/69 H Pulse Oximetry 100 94 94 Oxygen Delivery Room Air Room Air 07/04/24 05:44 Temperature 99.3 F Pulse Rate 108 H Respiratory Rate 16 Blood Pressure 165/74 H Pulse Oximetry 96 Oxygen Delivery Intake/Output Intake/Output: Intake & Output 05/07/02/24 07/03/24 07/04/24 23:59 23:59 23:59 23:59 Intake Total 1050 118 Output Total 1400 Balance 1050 -1282 Meds/Results Medications: Active Medications Generic Name Dose Route Start Last Admin Trade Name Freq PRN Reason Stop Dose Admin Acetaminophen 650 mg 07/03/24 15:24 Acetaminophen 325 Mg Tablet PO Q4H PRN Mild Pain (1-3) or Fever Hydrocodone Bitart/Acetaminophen 1 tab 07/03/24 15:24 Hydrocodone/Acetaminophen (*Crx) 5-325 Mg Tablet PO Q4H PRN Pain Rated 4-6 Amlodipine Besylate 10 mg 07/04/24 09:00 07/04/24 09:44 Amlodipine Besylate 10 Mg Tablet PO 10 mg DAILY JULISSA Administration Bupropion HCl 300 mg 07/04/24 09:00 07/04/24 09:44 Bupropion Hcl Xl (24 Hr) 150 Mg Tabcr PO 300 mg DAILY JULISSA Administration Docusate Sodium 100 mg 07/03/24 18:00 07/04/24 09:44 Docusate Sodium 100 Mg Capsule PO 100 mg BID JULISSA Administration Enoxaparin Sodium 40 mg 07/04/24 09:00 07/04/24 09:44 Enoxaparin 40 Mg/0.4 Ml Syringe SUB-Q Not Given DAILY JULISSA Guaifenesin/Dextromethorphan 10 ml 07/03/24 21:00 07/04/24 09:49 Guaifenesin/Dextromethorphan 10 Ml Udc PO 10 ml Q4H JULISSA Administration Ceftriaxone Sodium 1 gm in 50 mls @ 100 mls/hr 07/04/24 16:00 Rocephin 1 Gm/Ns 50 Ml IVPB Q24H JULISSA Azithromycin 500 mg in 250 mls @ 250 mls/hr 07/04/24 18:00 Zithromax IVPB Q24H JULISSA Sodium Chloride 1,000 mls @ 125 mls/hr 07/03/24 21:55 07/04/24 09:49 Normal Saline Iv IV CONT Not Given .Q8H JULISSA Sodium Chloride 1,000 mls @ 75 mls/hr 07/04/24 07:45 07/04/24 09:49 Normal Saline Iv IV CONT 75 mls/hr .[id number] JULISSA Administration Losartan Potassium 100 mg 07/04/24 09:00 07/04/24 09:44 Losartan Potassium 100 Mg Tablet PO 100 mg DAILY JULISSA Administration Morphine Sulfate 4 mg 07/03/24 15:24 Morphine Sulfate (*Crx) 4 Mg/Ml Inj IV PUSH Q2H PRN Pain Rated 7-10 Nebivolol 2.5 mg 07/04/24 09:00 07/04/24 09:48 Nebivolol Hcl 2.5 Mg Tablet PO 2.5 mg DAILY JULISSA Administration Promethazine HCl 12.5 mg 07/03/24 15:24 Promethazine Hcl 25 Mg/Ml Ampul IV PUSH Q6H PRN Nausea Tamsulosin HCl 0.4 mg 07/04/24 09:00 07/04/24 09:44 Tamsulosin Hcl 0.4 Mg Capsule PO 0.4 mg DAILY JULISSA Administration Radiology Results: ITS Impressions Chest CTA 07/03/24 14:42 IMPRESSION: No central pulmonary embolus. No thoracic aortic dissection. Findings within the left lower lobe for which an infiltrate is suspected. Follow-up to resolution is recommended, as a malignancy has a similar appearance. Labs Labs: Laboratory Results - last 24 hr 07/03/24 07/03/24 07/04/24 13:50 13:51 05:27 WBC 18.9 H 16.5 H RBC 4.59 L 4.11 L Hgb 12.8 L 11.1 L Hct 38.5 L 35.5 L MCV 83.9 86.4 MCH 27.9 27.0 MCHC 33.2 31.3 L RDW 14.1 14.0 Plt Count 215 223 MPV 10.0 10.6 H Immature Gran % (Auto) 1.0 H 1.6 H Neut % (Auto) 76.7 H 79.3 H Lymph % (Auto) 8.6 L 6.1 L [place] % (Auto) 13.4 H 12.8 H Eos % (Auto) 0.0 0.0 Baso % (Auto) 0.3 0.2 Lymph # (Auto) 1.63 1.00 [place] # (Auto) 2.5 H 2.1 H Eos # (Auto) 0.0 0.0 Baso # (Auto) 0.1 0.0 Abs Immat Gran (auto) 0.18 H 0.27 H Absolute Neuts (auto) 14.5 H 13.1 H Absolute Nucleated RBC 0.000 0.000 Nucleated RBC % 0.0 0.0 Sodium 132 L 133 L Potassium 3.7 3.3 L Chloride 100 101 Carbon Dioxide 24 22 Anion Gap 8 10 BUN 18 13 D Creatinine 1.77 H 1.30 Estim Creat Clear Calc 39 53 Estimated GFR 39 L 55 L Glucose 126 H 137 H Lactic Acid 0.8 Calcium 9.4 8.4 Iron 25 L TIBC 259 L % Saturation 10 L Total Bilirubin 0.9 AST 31 ALT 19 Alkaline Phosphatase 81 Total Protein 8.0 Albumin 4.0 Lipase 42 Vitamin B12 456.0 Folate 7.5 TSH (Reflex) 0.973 Urine Color Yellow Urine Appearance Clear Urine pH 5.5 Ur Specific [place] 1.016 Urine Protein 1+ H Urine Glucose (UA) Negative Urine Ketones Trace H Ur Blood (Man) Negative Urine Nitrate Negative Urine Bilirubin Negative Urine Urobilinogen 2.0 H Leukocyte Esterase Rfl Trace H Urine RBC 0-2 Urine WBC 0-5 Ur Squamous Epith Cells None seen Urine Bacteria None seen Urine Casts 0-2 Quality VTE Prophylaxis VTE prophylaxis: mechanical ordered and pharmacologic ordered
[2024-07-04] MEDS: cefTRIAXone 2 GM/NS 100 ML 2 GM/100 ML BAG IVPB (12:48)
[2024-07-04 14:00] VITALS: BP 136/83; PULSE 90; RESP 18; TEMP 37.1; O2SAT 95
[2024-07-04] MEDS: AZITHROMYCIN 500 MG/NS 250 ML 500 MG/250 ML BAG 250 MG IVPB (18:13)
[2024-07-04 20:56] VITALS: BP 121/60; PULSE 82; RESP 24; TEMP 36.4; O2SAT 96
[2024-07-05] MEDS: guaiFENesin/DEXTROMETHORPHAN 10 ML UDC PO ×5 (04:54→21:49)
[2024-07-05 05:46] VITALS: BP 135/73; PULSE 90; RESP 20; TEMP 36.1; O2SAT 97
[2024-07-05 05:59] LABS: Hematocrit 35.3 % (42.0-52.0); Hemoglobin 11.3 g/dL (14.0-18.0); Mean Corpuscular Hemoglobin 27.4 pg (26-34); Mean Corpuscular Volume 85.7 fl (80-100); Mean Platelet Volume 9.7 fl (7.4-10.4); Platelet Count Result 260 k/mm3 (150-375); Red Blood Count 4.12 M/mm3 (4.6-6.20); Red Cell Distribution Width 13.9 % (11.5-14.5); White Blood Count 12.5 K/mm3 (4.5-10.0)
[2024-07-05 06:10] LABS: Anion Gap 8 mmol/L (4-12); Blood Urea Nitrogen 11 mg/dL (9-20); Calcium 8.2 mg/dL (8.4-10.2); Carbon Dioxide 26 mmol/L (22-30); Chloride 100 mmol/L (98-107); Estimated CRCL calculation 64 ml/min; Estimated Glomerular Filt Rate > 60; Glucose 121 mg/dL (65-110); Potassium 3.1 mmol/L (3.4-5.0); Sodium 134 mmol/L (137-145)
[2024-07-05] MEDS: SODIUM CHLORIDE 0.9% IV 1,000 ML 75 ML IV CONT (06:32)
[2024-07-05 08:00] VITALS: PULSE 90; RESP 20; O2SAT 97
[2024-07-05] MEDS: ENOXAPARIN 40 MG/0.4 ML SYRINGE SUB-Q (09:43)
[2024-07-05] MEDS: TAMSULOSIN HCL 0.4 MG CAPSULE PO (09:43)
[2024-07-05] MEDS: DOCUSATE SODIUM 100 MG CAPSULE PO ×2 (09:43→16:51)
[2024-07-05] MEDS: amLODIPine BESYLATE 10 MG TABLET PO (09:43)
[2024-07-05] MEDS: buPROPion HCL XL (24 HR) 150 MG TABCR 300 MG PO (09:43)
[2024-07-05] MEDS: LOSARTAN POTASSIUM 100 MG TABLET PO (09:43)
[2024-07-05] MEDS: NEBIVOLOL HCL 2.5 MG TABLET PO (09:43)
[2024-07-05] MEDS: POTASSIUM CHLORIDE 20 MEQ ER TABLET 40 MEQ PO (12:02)
[2024-07-05] MEDS: cefTRIAXone 2 GM/NS 100 ML 2 GM/100 ML BAG IVPB (12:02)
--- NOTE | 2024-07-05 12:18 | P.PNIM_ITS ---
Progress Note: A&P Assessment and Plan (1) Sepsis: Code(s): A41.9 - Sepsis, unspecified organism Status: Acute Assessment and Plan: Secondary to pneumonia IV Zithromax and Rocephin Sepsis bolus Blood cultures pending CBC in the morning (2) Pneumonia: Code(s): J18.9 - Pneumonia, unspecified organism Status: Acute Assessment and Plan: IV Zithromax and Rocephin Robitussin IVF (3) Fever: Code(s): R50.9 - Fever, unspecified Status: Acute Assessment and Plan: Tylenol as needed (4) Anemia: Code(s): D64.9 - Anemia, unspecified Status: Acute Assessment and Plan: Anemia low iron monitor H&h transfuse if Hb less than 7 patient need to follow with PCP for further work up (5) CKD (chronic kidney disease): Code(s): N18.9 - Chronic kidney disease, unspecified Status: Acute Assessment and Plan: BMP morning (6) Hyponatremia: Code(s): E87.1 - Hypo-osmolality and hyponatremia Status: Acute Assessment and Plan: IVF Repeat morning (7) BPH (benign prostatic hyperplasia): Code(s): N40.0 - Benign prostatic hyperplasia without lower urinary tract symptoms Status: Acute Assessment and Plan: Restart Flomax (8) Hypertension: Code(s): I10 - Essential (primary) hypertension Status: Acute (9) Hypokalemia: Code(s): E87.6 - Hypokalemia Status: Acute Assessment and Plan: replete as needed Subjective Date/time seen: 07/05/24 12:18 Interval history: per HPi: 68-year-old male presents the hospital with abdominal pain. Patient originally went to urgent care with a temperature of 102.6? heart rate of 116 he was refer red to the hospital for further evaluation. Patient states that he has had decreased appetite due to abdominal pain and generalized malaise. He complains of nausea but denies vomiting. Patient does have some short of breath but is not requiring oxygen. He complains of a cough however a does not feel like he could get up junk out of his lungs. In the ED he has leukocytosis of 18.9, hemoglobin of 12.8, sodium of 132, creatinine of 1.77, GFR of 39, UA shows trace leukocyte esterase, chest CTA shows no pulmonary embolism, left lower lobe infiltrates. 07/04/24 Patient was seen and examined at bedside. he is feeling fine. Denies any chest pain, abd pain, nausea or vomiting. Continue treatment for dehydration, Deon and sepsis secondary to Pneumonia. follow culture results. 07/05/24 Patient was seen and examined at bedside, he is feeling fine, denies chest pain, sob, abd pain,N/V. complain of Mild back pain. lab test improving. will follow culture results possible discharge tomorrow if continue to improve. follow culture result Review of Systems Review of Systems: 12 systems were reviewed and are negativ e except for as per HPI. Exam Narrative: General: well appearing, appears stated age. HEENT: normocephalic, atraumatic. Mucous membranes moist. EOMI, PERRLA, bilateral sclera anicteric, no conjunctival injection. Neck supple without JVD, lymphadenopathy, or bruit. Respiratory: clear to ascultation bilaterally. No rales/rhonic/wheezes. Cardiovascular: Regular rate and rhythm, normal S1-S2 upon ascultation. No murmurs, rubs, or clicks. PMI is nondisplaced, capillary refill less than 3 second. Abdomen: Soft, round, no pulsatile masses, nondistended and nontender. No rebound, no guarding. No CVA tenderness, no hepatosplenomegaly. Bowel sounds present to all four quadrants. No high pitch or tinkling sounds, resonant to percussion. Extremities: No cyanosis, clubbing, or edema present. Pulses are palpable 2/2. Active ROM to all four extremities. Neuro: Alert and orientated x 4. PERRLA. Cranial nerves 2-12 intact without focal deficit. Skin: Warm, dry, and intact, without rash, erythema, or lesion. Psych: pleasant, cooperative, normal speech, normal affect, no hallucinations, no dysarthia Objective Data Vital Signs Vital Signs: Vital Signs - 24 hr 07/04/24 14:00 07/04/24 20:00 07/04/24 20:56 Temperature 98.8 F 97.6 F Pulse Rate 90 82 Respiratory Rate 18 24 H Blood Pressure 136/83 121/60 Pulse Oximetry 95 96 Oxygen Delivery Room Air 07/05/24 05:46 07/05/24 08:00 Temperature 97.0 F L Pulse Rate 90 90 Respiratory Rate 20 20 Blood Pressure 135/73 Pulse Oximetry 97 97 Oxygen Delivery Room Air Intake/Output Intake/Output: Intake & Output 07/02/24 07/03/24 07/04/24 07/05/24 23:59 23:59 23:59 23:59 Intake Total 1050 2003 390 Output Total 3876 700 Balance 2800 -1871 -310 Meds/Results Medications: Active Medications Generic Name Dose Route Start Last Admin Trade Name Freq PRN Reason Stop Dose Admin Acetaminophen 650 mg 07/03/24 15:24 Acetaminophen 325 Mg Tablet PO Q4H PRN Mild Pain (1-3) or Fever Hydrocodone Bitart/Acetaminophen 1 tab 07/03/24 15:24 Hydrocodone/Acetaminophen (*Crx) 5-325 Mg Tablet PO Q4H PRN Pain Rated 4-6 Amlodipine Besylate 10 mg 07/04/24 09:00 07/05/24 09:43 Amlodipine Besylate 10 Mg Tablet PO 10 mg DAILY JULISSA Administration Bupropion HCl 300 mg 07/04/24 09:00 07/05/24 09:43 Bupropion Hcl Xl (24 Hr) 150 Mg Tabcr PO 300 mg DAILY JULISSA Administration Docusate Sodium 100 mg 07/03/24 18:00 07/05/24 09:43 Docusate Sodium 100 Mg Capsule PO 100 mg BID JULISSA Administration Enoxaparin Sodium 40 mg 07/04/24 09:00 07/05/24 09:43 Enoxaparin 40 Mg/0.4 Ml Syringe SUB-Q 40 mg DAILY JULISSA Administration Guaifenesin/Dextromethorphan 10 ml 07/03/24 21:00 07/05/24 12:02 Guaifenesin/Dextromethorphan 10 Ml Udc PO 10 ml Q4H JULISSA Administration Azithromycin 500 mg in 250 mls @ 250 mls/hr 07/04/24 18:00 07/04/24 18:13 Zithromax IVPB 250 mls/hr Q24H JULISSA Administration Sodium Chloride 1,000 mls @ 75 mls/hr 07/04/24 07:45 07/05/24 06:32 Normal Saline Iv IV CONT 75 mls/hr .[id number] JULISSA Administration Ceftriaxone Sodium 2 gm in 100 mls @ 200 mls/hr 07/04/24 13:00 07/05/24 12:02 Rocephin 2 Gm/Ns 100 Ml IVPB 200 mls/hr Q24H JULISSA Administration Losartan Potassium 100 mg 07/04/24 09:00 07/05/24 09:43 Losartan Potassium 100 Mg Tablet PO 100 mg DAILY JULISSA Administration Morphine Sulfate 4 mg 07/03/24 15:24 Morphine Sulfate (*Crx) 4 Mg/Ml Inj IV PUSH Q2H PRN Pain Rated 7-10 Nebivolol 2.5 mg 07/04/24 09:00 07/05/24 09:43 Nebivolol Hcl 2.5 Mg Tablet PO 2.5 mg DAILY JULISSA Administration Promethazine HCl 12.5 mg 07/03/24 15:24 Promethazine Hcl 25 Mg/Ml Ampul IV PUSH Q6H PRN Nausea Tamsulosin HCl 0.4 mg 07/04/24 09:00 07/05/24 09:43 Tamsulosin Hcl 0.4 Mg Capsule PO 0.4 mg DAILY JULISSA Administration Radiology Results: ITS Impressions Chest CTA 07/03/24 14:42 IMPRESSION: No central pulmonary embolus. No thoracic aortic dissection. Findings within the left lower lobe for which an infiltrate is suspected. Follow-up to resolution is recommended, as a malignancy has a similar appearance. Labs Labs: Laboratory Results - last 24 hr 07/05/24 05:34 WBC 12.5 H RBC 4.12 L Hgb 11.3 L Hct 35.3 L MCV 85.7 MCH 27.4 MCHC 32.0 RDW 13.9 Plt Count 260 MPV 9.7 Sodium 134 L Potassium 3.1 L Chloride 100 Carbon Dioxide 26 Anion Gap 8 BUN 11 Creatinine 1.05 Estim Creat Clear Calc 64 Estimated GFR > 60 Glucose 121 H Calcium 8.2 L Quality VTE Prophylaxis VTE prophylaxis: mechanical ordered and pharmacologic ordered
[2024-07-05 14:00] VITALS: BP 137/89; PULSE 80; RESP 16; O2SAT 96
[2024-07-05] MEDS: HYDROcodone/acetaminophen (*CRX) 5-325 MG TABLET 1 TAB PO (17:00)
[2024-07-05] MEDS: AZITHROMYCIN 500 MG/NS 250 ML 500 MG/250 ML BAG 250 MG IVPB (17:15)
[2024-07-05 20:09] VITALS: BP 123/76; PULSE 80; RESP 16; TEMP 36.6; O2SAT 96
[2024-07-06 05:00] VITALS: BP 133/83; PULSE 90; RESP 18; TEMP 36.3; O2SAT 99
[2024-07-06 06:30] LABS: Hematocrit 36.9 % (42.0-52.0); Hemoglobin 12.1 g/dL (14.0-18.0); Mean Corpuscular HGB Conc 32.8 g/dl (32-36); Mean Corpuscular Hemoglobin 27.5 pg (26-34); Mean Corpuscular Volume 83.9 fl (80-100); Mean Platelet Volume 9.6 fl (7.4-10.4); Platelet Count Result 324 k/mm3 (150-375); Red Cell Distribution Width 13.7 % (11.5-14.5); White Blood Count 9.7 K/mm3 (4.5-10.0)
[2024-07-06 06:43] LABS: Anion Gap 10 mmol/L (4-12); Blood Urea Nitrogen 10 mg/dL (9-20); Calcium 8.4 mg/dL (8.4-10.2); Carbon Dioxide 26 mmol/L (22-30); Chloride 99 mmol/L (98-107); Estimated CRCL calculation 69 ml/min; Estimated Glomerular Filt Rate > 60; Glucose 102 mg/dL (65-110); Potassium 3.5 mmol/L (3.4-5.0); Sodium 135 mmol/L (137-145)
[2024-07-06] MEDS: guaiFENesin/DEXTROMETHORPHAN 10 ML UDC PO (10:00)
[2024-07-06] MEDS: NEBIVOLOL HCL 2.5 MG TABLET PO (10:01)
[2024-07-06] MEDS: buPROPion HCL XL (24 HR) 150 MG TABCR 300 MG PO (10:01)
[2024-07-06] MEDS: LOSARTAN POTASSIUM 100 MG TABLET PO (10:01)
[2024-07-06] MEDS: DOCUSATE SODIUM 100 MG CAPSULE PO (10:01)
[2024-07-06] MEDS: amLODIPine BESYLATE 10 MG TABLET PO (10:01)
[2024-07-06] MEDS: TAMSULOSIN HCL 0.4 MG CAPSULE PO (10:01)
--- NOTE | 2024-07-06 10:48 | P.DS_ITS ---
DS: Admitting Diagnosis Discharge Date 07/06/24 Admitting Diagnosis Abdominal pain DS: Discharge Diagnosis Discharge Diagnosis (1) Sepsis: Code(s): A41.9 - Sepsis, unspecified organism Status: Acute Assessment and Plan: Secondary to pneumonia IV Zithromax and Rocephin Sepsis bolus Blood cultures pending CBC in the morning (2) Pneumonia: Code(s): J18.9 - Pneumonia, unspecified organism Status: Acute Assessment and Plan: IV Zithromax and Rocephin Robitussin IVF (3) Fever: Code(s): R50.9 - Fever, unspecified Status: Acute Assessment and Plan: Tylenol as needed (4) Anemia: Code(s): D64.9 - Anemia, unspecified Status: Acute Assessment and Plan: Anemia low iron monitor H&h transfuse if Hb less than 7 patient need to follow with PCP for further work up (5) CKD (chronic kidney disease): Code(s): N18.9 - Chronic kidney disease, unspecified Status: Acute Assessment and Plan: BMP morning (6) Hyponatremia: Code(s): E87.1 - Hypo-osmolality and hyponatremia Status: Acute Assessment and Plan: IVF Repeat morning (7) BPH (benign prostatic hyperplasia): Code(s): N40.0 - Benign prostatic hyperplasia without lower urinary tract symptoms Status: Acute Assessment and Plan: Restart Flomax (8) Hypertension: Code(s): I10 - Essential (primary) hypertension Status: Acute (9) Hypokalemia: Code(s): E87.6 - Hypokalemia Status: Acute Assessment and Plan: replete as needed DS: Summary Hospital Course Hospital Course: 68 y/o AA male presented with c/o abdominal pain, elevated white counts and fever, chest x-ray was suspicious for pneumonia patient was started on ceftriaxone and Zithromax, patient clinical symptoms are improving, his pain is better, has no fever, his white counts are trending down, blood culture no growth, will discharge home today. Time Spent with Patient Time attestation: Total time spent providing and/or coordinating discharge services: DS: Data Data Completed and Pending Labs on day of discharge: Labs from last 24 hours 07/06/24 05:40 WBC 9.7 RBC 4.40 L Hgb 12.1 L Hct 36.9 L MCV 83.9 MCH 27.5 MCHC 32.8 RDW 13.7 Plt Count 324 MPV 9.6 Sodium 135 L Potassium 3.5 Chloride 99 Carbon Dioxide 26 Anion Gap 10 BUN 10 Creatinine 0.98 Estim Creat Clear Calc 69 Estimated GFR > 60 Glucose 102 Calcium 8.4 Preliminary micro results at discharge 07/03/24 15:42 Blood Culture - Preliminary Blood 07/03/24 15:42 Blood Culture - Preliminary Blood Discharge Plan Discharge Attending physician on discharge: Jesse Belcher Consulting providers: Kesha Gray; Paul Sands; Jesse Belcher; Jamila Jhaveri Discharging Clinician: Edu Dunbar Patient Disposition: Home Activity: as tolerated Diet: heart healthy Discharge Instructions: Patient to follow up with his primary care provider as soon as possible, patient is instructed if any symptoms worsen to go to nearest ER. PATIENT IS INSTRUCTED HE NEEDS FOLLOW UP X-RAY IN 4-6 WEEKS TO CHECK FOR HIS PNEUMONIA. Patient Instructions: Antibiotic Form Patient Language: Kiswahili Stand Alone Forms: General Discharge Information Follow-up/Referrals: EDUAR,JUAN RAMON CERVANTES [Primary Care Provider] - Discharge Medications: Continued meloxicam 15 mg tablet 15 mg PO PRN amlodipine 10 mg tablet 10 mg PO DAILY bupropion HCl 300 mg tablet extended release 24 hr 300 mg PO DAILY losartan 100 mg tablet 100 mg PO DAILY nebivolol 2.5 mg tablet 2.5 mg PO DAILY Patient Comments: hasn't taken in a long time tamsulosin 0.4 mg capsule 0.4 mg PO DAILY Date of admission: 07/04/24 10:20 Primary Care Provider: CHRISBILLY Admitting Provider: Bertram Ibrahim Attending physician on admission: Edu Dunbar Condition: Stable
== END 2024-07-06 11:00 | disposition home or self-care (01) | DRG 871 ==
LOC: ANHED 16:18 → ANH3MEDSUR 16:57
PROVIDERS: Internal Medicine; Nurse Practitioner Gerontology; Admitting Provider Internal Medicine; Emergency Provider Emergency Medicine; PCP Nurse Practitioner Family; Visit Provider Family Medicine
DX: A41.9 Sepsis, unspecified organism (principal); J18.9 Pneumonia, unspecified organism; E87.1 Hypo-osmolality and hyponatremia; D63.1 Anemia in chronic kidney disease; I12.9 Hypertensive chronic kidney disease with stage 1 through stage 4 chronic kidney disease, or unspecified chronic kidney disease; N18.9 Chronic kidney disease, unspecified; N40.0 Benign prostatic hyperplasia without lower urinary tract symptoms
CPT/HCPCS: 36415; 71275; 80048; 80053; 81001; 82607; 82746; 83540; 83550; 83605; 83690; 84443; 85025; 85027; 87040; 93005; 96365; 96366; 96375; 99285; A9270; G0378; J0456; J0696; J1650; J1885; J7030; Q9967